=== PATIENT | female | born 1945 | race Caucasian/White ===

== ENCOUNTER 2018-04-12 15:21 | Outpatient (REF) | payer OTHER, SELFPAY ==
[2018-04-12 20:21] LABS: COMMENT (LAB VIEW ONLY) 267.86 mg/dL; Microalb ug/mg Crea 15.3 ug/mg Cr
== END 2018-04-12 15:41 ==
LOC: NCHCN 15:21
PROVIDERS: PCP Family Medicine; Visit Provider Family Medicine
DX: E11.9 Type 2 diabetes mellitus without complications (principal)
CPT/HCPCS: 82043; 82570

== ENCOUNTER 2018-09-29 08:24 | Outpatient (REF) | payer OTHER, SELFPAY ==
[2018-09-29 13:30] LABS: Hemoglobin A1C 6.8 % (4.5-6.2)
[2018-09-29 13:52] LABS: Anion Gap 5.5 mmol/L (3-11); BUN 12 mg/dL (7-18); CO2 31.5 mmol/L (21.0-32.0); CREATININE 0.71 mg/dL (0.55-1.02); Calculated LDL 92; Chloride 102 mmol/L (98-107); Cholesterol 176 mg/dL (50-200); Glucose 135 mg/dL (70-100); HDL Cholesterol 58 mg/dL (40-60); Potassium 4.7 mmol/L (3.5-5.1); Sodium 139 mmol/L (136-145); Triglyceride 130 mg/dL (30-150)
[2018-09-29 13:57] LABS: Calcium 9.3 mg/dL (8.5-10.1)
== END 2018-09-29 08:44 ==
LOC: NCHCN 08:24
PROVIDERS: PCP Family Medicine; Visit Provider Family Medicine
DX: E11.9 Type 2 diabetes mellitus without complications (principal); E78.5 Hyperlipidemia, unspecified
CPT/HCPCS: 80048; 80061; 83721; 83036

== ENCOUNTER 2018-10-15 01:44 | Outpatient (CLI) | payer OTHER, SELFPAY ==
--- NOTE | 2018-10-15 13:17 | DI.MAMMO_ITS ---
SYMPTOMS/DIAGNOSIS: SCREENING, [facility], Z00.00, FAMILY H/O CANCER BILATERAL SCREENING MAMMOGRAM: Mammograms were interpreted according to the usual protocol including computer analysis with CAD system, tomosynthesis and C view imaging. Comparison is made with exams from 2012 through 2017. The breasts are composed of scattered fibroglandular densities, breast density category B. No suspicious masses or suspicious microcalcifications are seen. There has been no significant change. IMPRESSION: Category 1, negative mammogram. Yearly screening mammography is recommended. [facility] ASSESSMENT OF FINDINGS: Negative. Category 1. Patient will receive a letter notifying them of these results. BI-RADS category B. There are scattered areas of fibroglandular density.
== END 2018-10-15 02:04 ==
PROVIDERS: PCP Family Medicine; Visit Provider Family Medicine
DX: Z12.31 Encounter for screening mammogram for malignant neoplasm of breast (principal); Z80.3 Family history of malignant neoplasm of breast
CPT/HCPCS: 77063; 77067

== ENCOUNTER 2018-12-15 00:33 | Outpatient (CLI) | payer OTHER, SELFPAY ==
--- NOTE | 2018-12-15 07:30 | MERGE_ITS ---
*[facility]* *[facility]* [address] [place] [address] Date of study: 12/15/2018 Transthoracic Echocardiography M-mode, complete 2D, complete spectral Doppler, and color Doppler *STUDY CONCLUSIONS* Summary: 1. Left ventricle: The cavity size was normal. Systolic function was normal. The estimated ejection fraction was 60-65%. Diastolic parameters were normal for age. There was no evidence of elevated ventricular filling pressure by Doppler parameters. 2. Aortic valve: There was very mild stenosis. Peak velocity (S): 1.9m/sec. Mean gradient (S): 8.7mm Hg. VTI ratio of LVOT to aortic valve: 0.46. Valve area (VTI): 1.3cm^2. 3. Mitral valve: There was mild regurgitation. 4. Right ventricle: The cavity size was normal. Wall thickness was normal. Systolic function was normal. 5. Atrial septum: No defect or patent foramen ovale was identified. 6. Pulmonary arteries: Pulmonary systolic pressure was in the range of 20mm Hg to 30mm Hg. 7. Inferior vena cava: The vessel was patent and normal in size. The respirophasic diameter changes were in the normal range (greater than or equal to 50%), consistent with normal central venous pressure. *PATIENT PRESENTATION* Height: 154.9cm (61in ) S/D Pressure: 125 / 68 Weight: 83.9kg (184.6lb ) BSA: 1.94m^2 Test start time: 07:38 AM. Test stop time: 08:30 AM. CONSULTING Deepika Miller Dana REFERRING Kraus, Dana PERFORMING Unknown PERFORMING [facility] CURRICULUM COUNSELOR Delaney Greene, RT (R)(CT), RDCS *PROCEDURE DATA* Procedure information: This study was interpreted by [facility]. Pertinent images and digital data are archived for permanent storage and are available for subsequent review. No prior study was available for comparison. Study status: Routine. Transthoracic echocardiography. M-mode, complete 2D, complete spectral Doppler, and color Doppler. A Transthoracic Echocardiogram was performed. Scanning was performed from the parasternal, apical, subcostal, and suprasternal notch acoustic windows. Images were obtained using an [id number] cardiac ultrasound machine. Image quality was good. Study completion: The patient tolerated the procedure well. History: PMH: Systolic heart murmur r01.1 she was told murmur as far back as age 49. Louder to primary care. No symptoms. *CARDIAC ANATOMY* Left ventricle: The cavity size was normal. Systolic function was normal. The estimated ejection fraction was 60-65%. Diastolic parameters were normal for age. There was no evidence of elevated ventricular filling pressure by Doppler parameters. Aortic valve: Trileaflet; mildly thickened, mildly calcified leaflets. Doppler: There was very mild stenosis. There was no regurgitation. VTI ratio of LVOT to aortic valve: 0.46. Valve area (VTI): 1.3cm^2. Indexed valve area (VTI): 0.7cm^2/m^2. Peak velocity ratio of LVOT to aortic valve: 0.46. Valve area (Vmax): 1.3cm^2. Indexed valve area (Vmax): 0.7cm^2/m^2. Mean velocity ratio of LVOT to aortic valve: 0.48. Valve area (Vmean): 1.3cm^2. Indexed valve area (Vmean): 0.7cm^2/m^2. Mean gradient (S): 8.7mm Hg. Peak gradient (S): 14.6mm Hg. Aorta: Aortic root: The aortic root was normal in size. Ascending aorta: The ascending aorta was mildly dilated. Mitral valve: Doppler: There was no evidence for stenosis. There was mild regurgitation. Valve area by pressure half-time: 4cm^2. Indexed valve area by pressure half-time: 2cm^2/m^2. Peak gradient (D): 4.1mm Hg. Left atrium: The atrium was normal in size. Atrial septum: No defect or patent foramen ovale was identified. Right ventricle: The cavity size was normal. Wall thickness was normal. Systolic function was normal. Pulmonic valve: Doppler: There was no evidence for stenosis. There was trivial regurgitation. Peak gradient (S): 2.9mm Hg. Tricuspid valve: Doppler: There was mild regurgitation. Pulmonary artery: Poorly visualized. Pulmonary systolic pressure was in the range of 20mm Hg to 30mm Hg. Right atrium: The atrium was normal in size. Pericardium: There was no pericardial effusion. Systemic veins: Inferior vena cava: Well visualized. The vessel was patent and normal in size. The respirophasic diameter changes were in the normal range (greater than or equal to 50%), consistent with normal central venous pressure. Baseline ECG: Bradycardia. Measurements Left ventricle Value Reference LV ID, ED, PLAX 4.7 cm 3.5 - 6.0 LV ID, ES, PLAX 2.8 cm 2.1 - 4.0 LV PW thickness, ED, PLAX 0.9 cm LV end-diastolic volume, 1-p A2C 79 ml LV ejection fraction, 1-p A2C 59 % LV end-diastolic volume, 1-p A4C 74 ml LV ejection fraction, 1-p A4C 61 % LV e', lateral 0.09 m/sec LV E/e', lateral 11 LV e', medial 0.082 m/sec LV E/e', medial 12 LV e', average 0.086 m/sec LV E/e', average 12 Ventricular septum Value Reference IVS thickness, ED, PLAX 0.9 cm LVOT Value Reference LVOT ID, A-P 1.9 cm LVOT area 2.8 cm^2 LVOT peak velocity, S 0.87 m/sec LVOT mean velocity, S 0.67 m/sec LVOT VTI, S 23.9 cm LVOT peak gradient, S 3 mm Hg LVOT mean gradient, S 2 mm Hg Stroke volume (SV), LVOT DP 67 ml Stroke index (SV/bsa), LVOT DP 34 ml/m^2 Aortic valve Value Reference Aortic valve peak velocity, S 1.9 m/sec Aortic valve mean velocity, S 1.4 m/sec Aortic valve VTI, S 52.0 cm Aortic mean gradient, S 8.7 mm Hg Aortic peak gradient, S 14.6 mm Hg VTI ratio, LVOT/AV 0.46 Aortic valve area, VTI 1.3 cm^2 Velocity ratio, peak, LVOT/AV 0.46 Aortic valve area, peak velocity 1.3 cm^2 Velocity ratio, mean, LVOT/AV 0.48 Aortic valve area, mean velocity 1.3 cm^2 Aortic valve area/bsa, mean velocity 0.7 cm^2/m^2 Aorta Value Reference Aortic root ID, ED 3.1 cm Ascending aorta ID, A-P, S 3.4 cm Left atrium Value Reference LA ID, A-P, ES 3.2 cm LA ID/bsa, A-P 1.6 cm/m^2 <=2.2 LA volume/bsa, ES, 1-p A4C 25 ml/m^2 LA volume, ES, 2-p 52 ml LA volume/bsa, ES, 2-p 27 ml/m^2 LA/aortic root ratio 1.04 Mitral valve Value Reference Mitral E-wave peak velocity 1.01 m/sec Mitral A-wave peak velocity 0.93 m/sec Mitral deceleration time 191 ms 150 - 230 Mitral pressure half-time 55 ms Mitral peak gradient, D 4.1 mm Hg Mitral E/A ratio, peak 1.09 Mitral valve area, PHT, DP 4 cm^2 Tricuspid valve Value Reference Tricuspid regurg peak velocity 2.5 m/sec Tricuspid peak RV-RA gradient 24.5 mm Hg Right atrium Value Reference RA area, ES, A4C 15.8 cm^2 8.3 - 19.5 Pulmonic valve Value Reference Pulmonic peak gradient, S 2.9 mm Hg Legend: (L) and (H) tigre values outside specified reference range. I have personally reviewed the images and have reviewed and edited the reported findings. Electronically signed by Christiano Leiva MD 12/15/2018 16:36
== END 2018-12-15 00:53 ==
PROVIDERS: PCP Family Medicine; Visit Provider Family Medicine
DX: R01.1 Cardiac murmur, unspecified (principal); I35.0 Nonrheumatic aortic (valve) stenosis; I34.0 Nonrheumatic mitral (valve) insufficiency
CPT/HCPCS: 93306

== ENCOUNTER 2019-05-11 11:48 | Outpatient (REF) | payer OTHER, SELFPAY ==
[2019-05-11 14:43] LABS: COMMENT (LAB VIEW ONLY) 124.94 mg/dL; Microalb ug/mg Crea 17.4 ug/mg Cr
== END 2019-05-11 12:08 ==
LOC: NCHCN 11:48
PROVIDERS: PCP Family Medicine; Visit Provider Family Medicine
DX: E11.9 Type 2 diabetes mellitus without complications (principal)
CPT/HCPCS: 82043; 82570

== ENCOUNTER 2020-04-02 19:24 | Outpatient (REF) | payer OTHER, SELFPAY ==
[2020-04-02 13:53] LABS: HCT 41.8 % (36.0-46.0); HGB 13.4 g/dL (11.2-15.7); MCH 29.6 pg (27.0-33.0); MCHC 32.1 % (32.0-36.0); MCV 92.5 fL (80-95); MPV 9.7 fL (8.0-11.0); Platelet Count 313 10^3/uL (130-400); RBC 4.52 10^6/uL (3.93-5.22); RDW 12.4 % (11.7-14.6); RDW-SD 42.2 fL; WBC 5.08 10^3/uL (4.4-10.8)
[2020-04-02 14:03] LABS: BUN 13 mg/dL (7-18); CREATININE 0.88 mg/dL (0.55-1.02); Calcium 9.2 mg/dL (8.5-10.1); Chloride 103 mmol/L (98-107); Glucose 127 mg/dL (74-106); Potassium 4.4 mmol/L (3.5-5.1); Sodium 141 mmol/L (136-145)
[2020-04-02 14:20] LABS: Hemoglobin A1C 6.8 % (<5.7)
[2020-04-02 14:30] LABS: Vitamin D 25 Total 29.5 ng/ml (30-100)
== END 2020-04-02 19:44 ==
LOC: NCHCN 19:24
PROVIDERS: PCP Family Medicine; Visit Provider Family Medicine
DX: E78.5 Hyperlipidemia, unspecified (principal); E11.9 Type 2 diabetes mellitus without complications; E55.9 Vitamin D deficiency, unspecified
CPT/HCPCS: 80048; 82306; 85027; 83036

== ENCOUNTER 2020-10-08 18:47 | Outpatient (REF) | payer OTHER, SELFPAY ==
[2020-10-08 20:25] LABS: COMMENT (LAB VIEW ONLY) 168.25 mg/dL; Microalb ug/mg Crea 10.3 ug/mg Cr
== END 2020-10-08 18:48 | disposition home or self-care (01) ==
LOC: NCHCN 18:47
PROVIDERS: PCP Family Medicine; Visit Provider Family Medicine
DX: E11.9 Type 2 diabetes mellitus without complications (principal)
CPT/HCPCS: 82043; 82570

== ENCOUNTER 2020-12-31 14:11 | Outpatient (REF) | payer OTHER, SELFPAY ==
[2020-12-31 14:52] LABS: Anion Gap 6.4 mmol/L (3-11); BUN 12 mg/dL (7-18); CO2 31.6 mmol/L (21.0-32.0); CREATININE 0.9 mg/dL (0.55-1.02); Calcium 9.5 mg/dL (8.5-10.1); Chloride 105 mmol/L (98-107); Glucose 136 mg/dL (74-106); Potassium 4.9 mmol/L (3.5-5.1); Sodium 143 mmol/L (136-145)
== END 2020-12-31 14:12 | disposition home or self-care (01) ==
LOC: NCHCN 14:11
PROVIDERS: PCP Family Medicine; Visit Provider Family Medicine
DX: E11.9 Type 2 diabetes mellitus without complications (principal); E55.9 Vitamin D deficiency, unspecified
CPT/HCPCS: 80048; 82306; 83036

== ENCOUNTER 2021-03-21 01:54 | Outpatient (CLI) | payer MEDICARE, SELFPAY ==
--- NOTE | 2021-03-21 | DI.DEXA_ITS ---
Exam(s) XR DEXA BONE DENSITY W/WO OSCAR EXAM: XR DEXA BONE DENSITY W/WO OSCAR CLINICAL HISTORY: OSTEOPOROSIS W/ L1 COMP FX ON FOSAMAX M81.0 TECHNIQUE: Routine DEXA evaluation of the lumbar spine, hip, or forearm. COMPARISON: DX DEXA BONE DENSITY WITH OSCAR from July 2012 DX DEXA BONE DENSITY WITH OSCAR from 11/11/2016 FINDINGS: Performed on a [employer] unit. Lateral image: There are compression fractures T12-L2. The T12 compression fracture was evident. L2 compression fracture was not evident on the prior DEXA scan. Lumbar Spine total T-score: -1.2 . Prior 2013 reading was -1.9 Hip total T-score:-1.3. Prior reading in 2012 was -0.9 and in 2016 was -1.1 Independent reading at the level of the femoral neck yields at T-score of -3.2. Forearm total T-score: -2.5 IMPRESSION: Bone mineral density measures in the osteoporosis range due to the femoral neck reading. Therefore f racture risk is high. Please note that there are compression fractures of both T12 and L2 now eviden t. Note: Any spine fracture indicates 5x risk for subsequent spine fracture and 2x risk for subsequent h ip fracture. World Health Organization criteria for BMD interpretation classify patients: Normal...... T- Score at or above -1.0 Osteopenic... T- Score between -1.0 and -2.5 Osteoporosis... T-Score at or below -2.5
--- NOTE | 2021-03-21 15:20 | DI.MAMMO_ITS ---
Exam(s) MAMMO SCREENING EXAM: MAMMO SCREENING CLINICAL HISTORY: SCREENING MAMMO FOR BREAST CANCER Z12.31. TECHNIQUE: Bilateral full field digital CC and MLO mammographic images were obtained with 3D tomosyn thesis and utilizing computer aided detection (CAD). COMPARISON: Prior mammograms dating back to 2011, the most recent being October 2018. FINDINGS: There has been no significant change appearance and distribution fibroglandular tissue. There are no new spiculated masses nor malignant appearing microcalcification groups. Benign-appearing nodular densities in the right breast are unchanged prior studies. Asymmetric density anteriorly in the left breast is unchanged from prior studies. No new masses. No new malignant-appearing microcalcification groups no new architectural distortion or skin thickening-traction. IMPRESSION: No radiographic evidence of malignancy. Stable benign-appearing findings. BI-RADS Category 2 - Benign Findings Breast Density - Category B - Scattered areas of fibroglandular density Breast density Category C or D implies that the patient has dense breast tissue. Dense breast tissue can make it harder to find cancer on a mammogram. Dense breast tissue is also associated with an incr eased risk of breast cancer. This information about the result of the mammogram report was provided to the patient to raise their awareness. Use this report when you speak with the patient about their risks for breast cancer, which includes their family history. At that time, you may recommend additional screening tests (Ultrasoun d or MRI) as these tests may add significant information. A negative radiographic report should not delay biopsy if a dominant or clinically suspicious mass is present. Up to ten percent of cancers are not identified on mammography. A negative report may reinforce clinical impression. Adenosis and dense breasts may obscure an underlying neoplasm. False positive reports average 6 to 10%. Patient will receive a letter notifying them of these results.
== END 2021-03-21 02:14 ==
PROVIDERS: PCP Family Medicine; Visit Provider Family Medicine
DX: M81.0 Age-related osteoporosis without current pathological fracture (principal); Z12.31 Encounter for screening mammogram for malignant neoplasm of breast; Z13.820 Encounter for screening for osteoporosis; M85.89 Other specified disorders of bone density and structure, multiple sites
CPT/HCPCS: 77063; 77067; 77080

== ENCOUNTER 2021-09-16 08:37 | Outpatient (REF) | payer MEDICARE, SELFPAY ==
[2021-09-16 17:06] LABS: COMMENT (LAB VIEW ONLY) 92.98 mg/dL; Microalb ug/mg Crea 10.8 ug/mg Cr
[2021-09-16 17:22] LABS: Hemoglobin A1C 6.9 % (<5.7)
[2021-09-16 17:29] LABS: Anion Gap 7.8 mmol/L (3-11); BUN 14 mg/dL (7-18); CO2 30.2 mmol/L (21.0-32.0); CREATININE 0.8 mg/dL (0.55-1.02); Calcium 8.7 mg/dL (8.5-10.1); Chloride 104 mmol/L (98-107); Glucose 136 mg/dL (74-106); Potassium 4.3 mmol/L (3.5-5.1); Sodium 142 mmol/L (136-145)
[2021-09-16 17:40] LABS: PHOSPHORUS 3.4 mg/dL (2.6-4.7)
[2021-09-16 18:32] LABS: Vitamin D 25 Total 31.4 ng/mL (30-100)
[2021-09-18 10:46] LABS: Parathyroid Hormone,Intact 87 pg/mL (19-88)
[2021-09-18 11:12] LABS: IgA 307 mg/dL (85-499); Interpretation (See Note); Tissue Transglutaminase IgA <1.2 U/mL (<4.0)
== END 2021-09-16 08:38 | disposition home or self-care (01) ==
LOC: NCHCN 08:37
PROVIDERS: PCP Family Medicine; Visit Provider Family Medicine
DX: M81.0 Age-related osteoporosis without current pathological fracture (principal); E55.9 Vitamin D deficiency, unspecified; Z79.899 Other long term (current) drug therapy; E11.9 Type 2 diabetes mellitus without complications
CPT/HCPCS: 80048; 82306; 82784; 83516; 82043; 82570; 83036; 83970; 84100

== ENCOUNTER → 2022-01-04 10:53 | Outpatient (CLI) | payer MEDICARE, SELFPAY ==
--- NOTE | 2022-01-04 | DI.RAD_ITS ---
Exam(s) XR CHEST 2V PA LATERAL EXAM: XR CHEST 2V PA LATERAL CLINICAL HISTORY: COUGH TECHNIQUE: COMPARISON: CR XR DEXA BONE DENSITY W/WO OSCAR from 03/21/2021 FINDINGS: The heart is not enlarged. Lungs are clear. No pleural effusion seen. Old lower thoracic vertebral body compression fracture again noted. IMPRESSION: No evidence of acute process. RADIATION DOSE DELIVERED: Total DLP
--- NOTE | 2022-01-04 11:24 | DI.VRAD_ITS ---
PROCEDURE INFORMATION: Exam: XR Chest Exam date and time: 01/04/2022 11:04 AM Age: 76 years old Clinical indication: Cough TECHNIQUE: Imaging protocol: Radiologic exam of the chest. Views: 2 views. COMPARISON: No relevant prior studies available. FINDINGS: Lungs: Unremarkable. No consolidation. Pleural spaces: Unremarkable. No pleural effusion. No pneumothorax. Heart/Mediastinum: Unremarkable. No cardiomegaly. Bones/joints: Unremarkable. IMPRESSION: No acute findings. Dictated and Authenticated by: Mat Nash MD. Ordering:AIMEE Jaramillo MD
== END ==
PROVIDERS: PCP Family Medicine; Visit Provider Physician Assistant Medical
DX: R05.9 Cough, unspecified (principal)
CPT/HCPCS: 71046

== ENCOUNTER 2022-01-04 13:13 | Outpatient (REF) | payer MEDICARE, SELFPAY ==
[2022-01-06 11:57] LABS: COVID-19 RT-PCR UVMMC Result Negative (Negative)
== END 2022-01-04 13:14 | disposition home or self-care (01) ==
LOC: LBN 13:13
PROVIDERS: PCP Family Medicine; Visit Provider Physician Assistant Medical
DX: Z20.822 Contact with and (suspected) exposure to COVID-19 (principal)
CPT/HCPCS: U0003

== ENCOUNTER 2022-01-27 16:26 | Outpatient (REF) | payer MEDICARE, SELFPAY ==
[2022-01-27 16:32] LABS: TSH (W/Ref FT4) 1.16 uIU/mL (0.36-3.74); Vitamin B12 1040 pg/mL (193-986)
== END 2022-01-27 16:27 | disposition home or self-care (01) ==
LOC: NCHCN 16:26
PROVIDERS: PCP Family Medicine; Visit Provider Family Medicine
DX: R53.83 Other fatigue (principal); E53.8 Deficiency of other specified B group vitamins
CPT/HCPCS: 85027; 82607; 84443

== ENCOUNTER → 2022-03-24 02:03 | Outpatient (CLI) | payer MEDICARE, SELFPAY ==
--- NOTE | 2022-03-24 12:30 | DI.MAMMO_ITS ---
Exam(s) MAMMO SCREENING EXAM: MAMMO SCREENING CLINICAL HISTORY: SCREENING MAMMO Z12.31. TECHNIQUE: Bilateral full field digital CC and MLO mammographic images were obtained with 3D tomosyn thesis and utilizing computer aided detection (CAD). COMPARISON: Prior mammograms were reviewed. FINDINGS: There has been no significant change in the appearance and distribution of the fibroglandular tissue. Asymmetric benign-appearing nodular densities again noted in both breast. There are no new spiculated masses nor malignant appearing microcalcification groups. There is no significant architectural distortion nor skin thickening-retraction. IMPRESSION: No radiographic evidence of malignancy. Stable benign-appearing findings. BI-RADS Category 2 - Benign Findings Breast Density - Category B - Scattered areas of fibroglandular density Breast density Category C or D implies that the patient has dense breast tissue. Dense breast tissue can make it harder to find cancer on a mammogram. Dense breast tissue is also associated with an incr eased risk of breast cancer. This information about the result of the mammogram report was provided to the patient to raise their awareness. Use this report when you speak with the patient about their risks for breast cancer, which includes their family history. At that time, you may recommend additional screening tests (Ultrasoun d or MRI) as these tests may add significant information. A negative radiographic report should not delay biopsy if a dominant or clinically suspicious mass is present. Up to ten percent of cancers are not identified on mammography. A negative report may reinforce clinical impression. Adenosis and dense breasts may obscure an underlying neoplasm. False positive reports average 6 to 10%. Patient will receive a letter notifying them of these results.
== END ==
PROVIDERS: PCP Family Medicine; Visit Provider Family Medicine
DX: Z12.31 Encounter for screening mammogram for malignant neoplasm of breast (principal); N60.81 Other benign mammary dysplasias of right breast; N60.82 Other benign mammary dysplasias of left breast
CPT/HCPCS: 77063; 77067

== ENCOUNTER 2022-11-19 09:51 | Outpatient (REF) | payer MEDICARE, SELFPAY ==
[2022-11-19 16:27] LABS: HCT 38.9 % (36.0-46.0); HGB 12.6 g/dL (11.2-15.7); MCHC 32.4 % (32.0-36.0); MCV 90 fL (80-95); MPV 9.5 fL (8.0-11.0); Platelet Count 312 10^3/uL (130-400); RBC 4.34 10^6/uL (3.93-5.22); RDW 12.6 % (11.7-14.6); RDW-SD 42.1 fL; WBC 5.21 10^3/uL (4.4-10.8)
[2022-11-19 16:46] LABS: ALT 14 U/L (14-59); AST 18 U/L (15-37); Albumin 3.3 g/dL (3.4-5.0); Alkaline Phosphatase 90 U/L (46-116); Anion Gap 6.8 mmol/L (3-11); BUN 13 mg/dL (7-18); Bilirubin, Total 0.9 mg/dL (0.2-1.0); CO2 29.2 mmol/L (21.0-32.0); CREATININE 0.9 mg/dL (0.55-1.02); Calcium 9.2 mg/dL (8.5-10.1); Chloride 104 mmol/L (98-107); Estimated GFR 65.44 (mL/min/1.73m2); Glucose 130 mg/dL (74-106); Potassium 4.1 mmol/L (3.5-5.1); Sodium 140 mmol/L (136-145); Total Protein 7.1 g/dL (6.4-8.2)
[2022-11-19 16:47] LABS: Hemoglobin A1C 6.9 % (<5.7)
== END 2022-11-19 09:52 | disposition home or self-care (01) ==
LOC: NCHCN 09:51
PROVIDERS: PCP Family Medicine; Visit Provider Family Medicine
DX: E11.9 Type 2 diabetes mellitus without complications (principal); R53.83 Other fatigue; F32.89 Other specified depressive episodes
CPT/HCPCS: 80053; 85027; 83036

== ENCOUNTER 2023-04-20 10:08 | Emergency (ER) | payer MEDICARE, SELFPAY ==
[2023-04-20 10:19] VITALS: BP 164/64; PULSE 84; RESP 20; TEMP 36.3; O2SAT 100
--- NOTE | 2023-04-20 10:30 | DI.CT_ITS ---
Exam(s) CT LUMBAR SPINE SI JOINTS WO EXAM: CT LUMBAR SPINE SI JOINTS WO CLINICAL HISTORY: fall, l4 pain and SI bilateral. TECHNIQUE: Imaging Protocol: Axial computed tomography images with coronal and sagittal reformatted images were created and reviewed. COMPARISON: CR XR DEXA BONE DENSITY W/WO OSCAR from 03/21/2021 FINDINGS: Bones: There is an acute fracture of the superior endplate of L3 with loss of less than 20 percent of the height of the vertebral body. There are old compression deformities of T12 and L2. There are de generative changes seen throughout the lumbar spine. Soft tissues: Incidental note is made of a left adrenal nodule. It measures 1.7 cm. Atherosclerosis is present. There is diverticulosis seen in the colon. There is a hypodensity in the right kidney measuring 8 mm. This likely reflects a cyst but is too small for further characterization on this no ncontrast examination. Follow-up as clinically appropriate. IMPRESSION: 1. Acute fracture of the superior endplate of L3 with loss of approximately 15 percent of the height of the vertebral body. 2. Findings were discussed with Caleb Hendrickson at 11:43 a.m. on 04/20/2023. RADIATION DOSE DELIVERED: 723.91mGy.cm Total DLP 723.91mGy.cm Total DLP DATA REPOSITORY: All CT scans at this facility are submitted to the National Radiology Data Registry (NRDR) Dose Index Registry (DIR) with the [employer] (ACR). RADIATION OPTIMIZATION: All CT scans at this facility use at least one of these dose optimization te chniques: automated exposure control; mA and/or kV adjustment per patient size (includes targeted exa ms where dose is matched to clinical indication); or iterative reconstruction.
--- NOTE | 2023-04-20 12:24 | W.ED.GENAD ---
HPI General Stated Complaint: Nk/Back Pain Mode of arrival: ambulatory. AMITA: 3 Date/Time Provider Initiated Documentation: 04/20/23 10:26. Limitations to Documentation: no limitations. Information obtained by: patient and RN notes reviewed. History of Present Illness Back pain moderate aching back reports radiation to back day(s) (6) constant No relieving factors improve symptom(s), Movement worsens symptoms no other symptoms. other (Acetaminophen) Related Data Home Medications Medication Instructions Recorded Confirmed Calcium-Carb 600 mg DAILY 07/19/12 10/20/14 Vitamin B 12 100 mg DAILY 07/19/12 10/20/14 Vitamin D 3 DAILY 07/19/12 10/20/14 atorvastatin 20 mg tablet (Lipitor) 20 mg PO DAILY 07/19/12 04/20/23 loratadine 10 mg disintegrating 10 mg PO PRN 07/19/12 04/20/23 tablet metformin 500 mg tablet,extended 500 mg PO BID 07/19/12 04/20/23 release 24hr (osmotic) fluoxetine 10 mg capsule 10 mg PO DAILY 10/20/14 04/20/23 omeprazole magnesium 20 mg 20 mg PO PRN PRN 10/20/14 04/20/23 tablet,delayed release (Prilosec OTC) Allergies Allergy/AdvReac Type Severity Reaction Status Date / Time No Known Allergies Allergy Unverified 04/20/23 10:21 Review of Systems Constitutional Constitutional: Denies chills and Denies fever(s) Cardiovascular Cardiovascular: Denies chest pain and Denies dyspnea on exertion Respiratory Respiratory: Denies cough and Denies dyspnea on exertion Gastrointestinal Gastrointestinal: Denies abdominal pain, Denies change in bowel habits, Denies diarrhea, Denies nausea and Denies vomiting Genitourinary Genitourinary: Denies urinary incontinence Musculoskeletal Musculoskeletal: Reports as per HPI and Reports back pain Neurologic Neurologic: Denies sensory deficit PFSH All Active Problems (Updated 04/20/23 @ 12:59 by Caleb Hendrickson NP) High blood pressure (Chronic) Compression fracture of lumbar vertebra (Acute) Colon cancer screening (Acute) Medical History (Updated 04/20/23 @ 12:59 by Caleb Hendrickson NP) Hiatal hernia Rosacea Hyperlipidemia Depression Infectious mononucleosis age 18 -required hospitalization Diabetes mellitus, type 2 Family History Father Heart disease Sister Personal history of malignant neoplasm Breast CA - diagnosed age 63 Brother Diabetes Brother Diabetes Social History Smoking/Tobacco Use Status: Never Smoking risk assessment performed?: Yes Alcohol Intake: never Drug use: Never Housing: apartment Exam Const General: cooperative and no acute distress Orientation: alert, awake and oriented x3 Neck Neck: normal visual inspection, full ROM and no meningeal signs Resp Effort & Inspection: normal respiratory effort Back/Spine/Pelvis Thoracic/Lumbar Spine: pain with thoraco-lumbar ROM, thoraco-lumbar ROM limited and lumbar spinal tenderness Pelvis: no pain with anterior-posterior compression, no pain with lateral compression and no buttock tenderness Sacroiliac joints: bilaterally tender to palpation Neuro General: patient alert, patient awake and patient oriented x3 Course Vital Signs Vital signs: Vital Signs Temperature 36.3 C L 04/20/23 10:19 Pulse 84 04/20/23 10:19 Respiratory Rate 20 04/20/23 10:19 Blood Pressure 164/64 H 04/20/23 10:19 Pulse Oximetry 100 04/20/23 10:19 Temperature 36.3 C L 04/20/23 10:19 Pulse 84 04/20/23 10:19 Respiratory Rate 20 04/20/23 10:19 Respiratory Effort Normal, Non-Labored 04/20/23 10:21 Blood Pressure 164/64 H 04/20/23 10:19 Blood Pressure Position Sitting 04/20/23 10:19 Pulse Oximetry 100 04/20/23 10:19 Oxygen Delivery Method Room Air 04/20/23 10:19 Oxygen Flow Rate 0 04/20/23 10:19 Pain Level 5 04/20/23 10:19 Medical Decision Making Patient presenting the emergency department for chief complaint of fall landing on buttocks. Patient reports that she has not been improving and due to lack of improvement is presenting the emergency department. Patient denies any severe weakness of lower extremities, numbness tingling, change in bowel or bladder function. Patient does have pertinent past medical history of old compression fracture secondary to fall, depression, hiatal hernia, hyperlipidemia, type 2 diabetes. Physical exam shows mid lumbar tenderness, no tenderness with compression, SI joint tenderness , exam is otherwise unremarkable with normal sensation distal to injury, appropriate distal pulses. Will perform CT imaging as I am concerned for possible compression fracture given age and history of similar. Patient denies any need for pain medication pending results. CT imaging does show L3 acute compression fracture with 15% loss. Given patient tolerating symptoms well, no associated neuropathic abnormality, and less than 50% height loss I do feel that patient is able to do appropriately manage symptoms at home and follow-up with primary care. After discussion of diagnosis and plan of care patient has no further needs, questions, or concerns and states clear understanding to return to the emergency department for any worsening symptoms. This documentation was generated using [employer] dictation system, please disregard any oddities of phrase or misspellings. Imaging Data Radiologic Study: Imaging: CT Scan Radiologist's impression: Exam(s) CT LUMBAR SPINE SI JOINTS WO EXAM: CT LUMBAR SPINE SI JOINTS WO CLINICAL HISTORY: fall, l4 pain and SI bilateral. TECHNIQUE: Imaging Protocol: Axial computed tomography images with coronal and sagittal reformatted images were created and reviewed. COMPARISON: CR XR DEXA BONE DENSITY W/WO OSCAR from 03/21/2021 FINDINGS: Bones: There is an acute fracture of the superior endplate of L3 with loss of less than 20 percent of the height of the vertebral body. There are old compression deformities of T12 and L2. There are degenerative changes seen throughout the lumbar spine. Soft tissues: Incidental note is made of a left adrenal nodule. It measures 1.7 cm. Atherosclerosis is present. There is diverticulosis seen in the colon. There is a hypodensity in the right kidney measuring 8 mm. This likely reflects a cyst but is too small for further characterization on this noncontrast examination. Follow-up as clinically appropriate. IMPRESSION: 1. Acute fracture of the superior endplate of L3 with loss of approximately 15 percent of the height of the vertebral body. 2. Findings were discussed with Caleb Hendrickson at 11:43 a.m. on 04/20/2023. Quality:SDOH Health Related Social Needs: No Data to Display Discharge Plan Disposition Patient Disposition: Home Discharge Details Clinical Impression: Compression fracture of lumbar vertebra, High blood pressure Primary Care Provider: Deepika Miller ED Provider: Caleb Hendrickson Home Meds and New Rx's Prescriptions: Continued loratadine 10 MG tablet,disintegrating 10 mg PO PRN atorvastatin [Lipitor] 20 MG tablet 20 mg PO DAILY metformin 500 MG tablet extended release 24hr 500 mg PO BID VITAMIN B 12 100 mg DAILY VITAMIN D 3 DAILY calcium-carb 600 mg DAILY omeprazole magnesium [Prilosec OTC] 20 MG tablet,delayed release (DR/EC) 20 mg PO PRN PRN fluoxetine 10 MG capsule 10 mg PO DAILY Discharge Instructions Instructions: Vertebral Compression Fracture (ED) Additional Instructions: You may continue to take [id number] acetaminophen/Tylenol as needed for pain. Please do not take more than 2 to 3000 mg in a 24-hour period. If you have any new or significant worsening of symptoms, change in bowel or bladder function severe weakness or repeat injury please return to the emergency department for reassessment. It is very important that you do not lift anything greater than 5 pounds until cleared by your primary care provider. Please avoid bending lifting or twisting motions. Please follow-up with your primary care provider for reassessment Referrals: Deepika Miller MD [Primary Care Provider] - 1 week
[2023-04-20 12:40] VITALS: BP 179/76; PULSE 71; RESP 16; O2SAT 94
--- NOTE | 2023-04-20 14:35 | NUR.NOTE ---
Referral faxed to Primary Care for follow up due to Compression Fracture L3 within 1 week.
== END 2023-04-20 14:49 | disposition home or self-care (01) ==
PROVIDERS: Emergency Provider Nurse Practitioner Family; PCP Family Medicine
DX: S32.030A Wedge compression fracture of third lumbar vertebra, initial encounter for closed fracture (principal); E11.9 Type 2 diabetes mellitus without complications; E78.5 Hyperlipidemia, unspecified; Z79.84 Long term (current) use of oral hypoglycemic drugs; W07.XXXA Fall from chair, initial encounter
CPT/HCPCS: 99284; 72131

== ENCOUNTER 2023-05-06 20:44 | Outpatient (REF) | payer MEDICARE, SELFPAY ==
[2023-05-06 19:23] LABS: Calculated LDL 90 mg/dL (<100); Cholesterol 181 mg/dL (<200); HDL Cholesterol 63 mg/dL (40-60); Triglyceride 141 mg/dL (<150)
[2023-05-06 19:31] LABS: COMMENT (LAB VIEW ONLY) 255.87 mg/dL; Microalb ug/mg Crea 9.6 ug/mg Cr
== END 2023-05-06 20:45 | disposition home or self-care (01) ==
LOC: NCHCN 20:44
PROVIDERS: PCP Family Medicine; Visit Provider Family Medicine
DX: E11.9 Type 2 diabetes mellitus without complications (principal)
CPT/HCPCS: 80061; 82043; 82570; 83036

== ENCOUNTER → 2023-08-10 02:27 | Outpatient (CLI) | payer MEDICARE, SELFPAY ==
--- NOTE | 2023-08-10 | DI.DEXA_ITS ---
Exam(s) XR DEXA BONE DENSITY W/WO OSCAR EXAM: XR DEXA BONE DENSITY W/WO OSCAR CLINICAL HISTORY: SENILE OSTEOPOROSIS, M81.0 W/O CURRENT PATHOLOGICAL FRACTURE TECHNIQUE: COMPARISON: CR XR DEXA BONE DENSITY W/WO OSCAR from 03/21/2021 FINDINGS: Lateral Spine Image: There old compression fracture deformities of T12 and L2. There is a new superi or compression fracture deformity of L3. Left hip: Total T-Score: -1.1. This compares to -1.3 on the prior examination. Total Z-Score: 0.9 T- and Z-scores: Findings are consistent with osteopenia. There is osteoporosis in the femoral neck with a T-score of -2.9. Lumbar Spine: Total T-Score: -0.7. This compares to -1.2 on the prior examination. Total Z-Score: 1.9 T- and Z-scores: Within normal limits. Note is made of osteoporosis in the left forearm with a total T-score of -2.7. IMPRESSION: Osteoporosis in the left femoral neck and the left forearm.
== END ==
PROVIDERS: PCP Family Medicine; Visit Provider Family Medicine
DX: M81.0 Age-related osteoporosis without current pathological fracture (principal); Z13.820 Encounter for screening for osteoporosis
CPT/HCPCS: 77080

== ENCOUNTER 2023-09-02 11:47 | Outpatient (REF) | payer MEDICARE, SELFPAY ==
[2023-09-02 15:54] LABS: HGB 12.9 g/dL (11.2-15.7); MCH 28.8 pg (27.0-33.0); MCHC 32.3 % (32.0-36.0); MCV 89 fL (80-95); MPV 9.1 fL (8.0-11.0); Platelet Count 347 10^3/uL (130-400); RBC 4.48 10^6/uL (3.93-5.22); RDW 12.5 % (11.7-14.6); RDW-SD 41.1 fL; WBC 5.79 10^3/uL (4.4-10.8)
[2023-09-02 16:22] LABS: ALT 20 U/L (14-59); AST 12 U/L (15-37); Albumin 3.7 g/dL (3.4-5.0); Alkaline Phosphatase 109 U/L (46-116); Anion Gap 7.4 mmol/L (3-11); BUN 15 mg/dL (7-18); Bilirubin, Total 1.1 mg/dL (0.2-1.0); CO2 29.6 mmol/L (21.0-32.0); CREATININE 0.8 mg/dL (0.55-1.02); Calcium 9.3 mg/dL (8.5-10.1); Chloride 99 mmol/L (98-107); Glucose 116 mg/dL (74-106); Potassium 4.6 mmol/L (3.5-5.1); Sodium 136 mmol/L (136-145); TSH (W/Ref FT4) 0.81 uIU/mL (0.36-3.74); Total Protein 7.2 g/dL (6.4-8.2)
[2023-09-02 16:41] LABS: Hemoglobin A1C 7.1 % (<5.7)
== END 2023-09-02 11:48 | disposition home or self-care (01) ==
LOC: NCHCN 11:47
PROVIDERS: PCP Family Medicine; Visit Provider Family Medicine
DX: E11.9 Type 2 diabetes mellitus without complications (principal); R53.83 Other fatigue
CPT/HCPCS: 80053; 85027; 83036; 84443

== ENCOUNTER → 2023-09-24 00:25 | Outpatient (CLI) | payer MEDICARE, SELFPAY ==
--- NOTE | 2023-09-24 | DI.US_ITS ---
APPROVED REPORT EXAM: Comprehensive 2D, Doppler, and color-flow Echocardiogram Patient Location: Out-Patient Internet Webmaster: Wilda Flynn RDCS (AE) Indications: Aortic valve stenosis Other Information Study Quality: Good Conclusion Normal left ventricular wall thickness and chamber size. Ejection fraction is 60% Wall motion is nor mal. Normal right ventricular size and function Both atria are normal in size Aortic valve is trileaflet and minimally sclerotic. There is no hemodynamically significant aortic s tenosis. Mean gradient is 7 mmHg. There is no aortic regurgitation Mild mitral annular calcification Estimated right ventricular systolic pressure is 34 mmHg Wall motion Left Ventricle The left ventricle is normal size. The left ventricular systolic function is normal. The left ventric ular ejection fraction is within the normal range. There is normal left ventricular wall thickness. T here is normal LV segmental wall motion. There is no ventricular septal defect visualized. LVEF is 60 %. Right Ventricle The right ventricle is normal size. The right ventricular systolic function is normal. Atria The left atrium size is normal. The right atrium size is normal. The interatrial septum is intact wit h no evidence for an atrial septal defect. Aortic Valve The Aortic valve is minimally sclerotic. Aortic valve is trileaflet. There is no aortic valvular sten osis. Mean gradient 7 mmHg No aortic regurgitation is present. Mitral Valve The mitral valve is normal in structure. Mild mitral annular calcification. No evidence of mitral mary ve stenosis. Trace mitral regurgitation. Tricuspid Valve The tricuspid valve is normal in structure. There is no tricuspid valve stenosis. Trace tricuspid reg urgitation. The RVSP is 34.2 mmHg. Pulmonic Valve The pulmonary valve is normal in structure. There is no pulmonic valvular stenosis. Trace pulmonic re gurgitation. Great Vessels The aortic root is normal in size. The ascending aorta is normal in size. Aortic arch is not well vis ualized. IVC is normal in size and collapses >50% with inspiration. Pericardium There is no pericardial effusion. 2D Dimensions IVSD d PLAX 0.89 cm F: 0.6-1.0 Ao Root d 2.75 cm F: 2.7 - 3.3 LVPW d PLAX 0.91 cm F: 0.6 - 1.0 Ao Asc Diam d 2.89 cm F: 2.3 - 3.1 LVID d PLAX 4.07 cm F: 3.8 - 5.2 LVDs 2.84 cm F: 2.2 - 3.5 LV EF Teichholz 58.2 % FS 30.35 % LV EDV (Teich) 73.1 mL LV ESV (Teich) 30.5 mL M-Mode TAPSE 2.63 cm (M/F) >1.7 Auto EF LV EDV A4C 85.6 mL LV EDV A2C 101.3 mL LV EDV BP 93.2 mL LV ESV A4C 36.5 mL LV ESV A2C 42.2 mL LV ESV BP 39.4 mL LVEF(%) A4C 57.4 % LVEF(%) A2C 58.3 % LVEF(%) BP 57.7 % LV SV A4C 49.1 ml LV SV A2C 59.0 ml LV SV BP 53.8 ml LV CO A4C 3.2 L/min LV CO A2C 3.8 L/min LV CO BP 3.5 L/min HR A4C 65.81 BPM HR A2C 63.95 BPM LV EDV Index (BP) LA Volume LA Length A4C 5.3 cm LA Length A2C 5.1 cm LA Area A4C s 17.55 cm2 LA Area A2C s 15.13 cm2 LA Vol A4C A-L 49.64 mL LA Vol A2C A-L 38.30 mL LA Vol Biplane A-L 44.4 mL LA Vol/BSA A4C A-L LA Vol/BSA A2C A-L LA Vol/BSA BP A-L 25.0 mL/m2 LA Vol A4C MOD 46.4 mL LA Vol A2C MOD 36.2 mL LA Vol BP MOD 41.7 mL RA Volume RA Area A4C 12.4 cm2 RA ESV A4C (A-L) 29.1mL RA Vol/BSA A4C A-L RA Length A4C 4.5 cm RA ESV A4C (MOD) 28.5mL LV Diastology MV E' medial 0.067 (>0.07 m/s) MV E Vmax 1.10 (0.4-1.3 m/s) MV E/E' MED 16.47 (<14) MV A Vmax 0.95 (0.4-1.3 m/s) MV E' lateral 0.087 (>0.1 m/s) E/A Ratio 1.2 MV E/E' LAT 12.60 (<14) MV E' Average 0.077 m/s MV E/E'(average) 14.28 Aortic Valve AoV Vmax 1.83 m/s LVOT Vmax 1.26 m/s AoV Peak Grad 13.4 mmHg LVOT Peak Grad 6.3 mmHg AoV Area (Vmax) 2.14 cm2 LVOT VTI 0.315 m AoV VTI 0.455 m LVOT Mean Grad 4.1 mmHg AoV Mean New. 1.23 m/s LVOT SV 97.95 mL AoV Mean Grad 6.9 mmHg LVOT Diam s 1.95 cm AoV Area (VTI) 2.15 cm2 Velocity Ratio 0.69 Mitral Valve MV DT 221 (160-240 msec) MV Vmax TIPS 1.11 m/s MV Mean Grad 1.9 (<2mmHg) MV VTI 0.460 m Pulmonary Valve PV Vmax 0.81 (0.5-1.5 m/s) RVOT Vmax 0.63 m/s PV Peak Grad 2.6 mmHg RVOT Peak Gr. 1.6 mmHg PV Mean New 0.61 m/s RVOT VTI 0.172 m PV Mean Grad 1.7 mmHg RVOT Mean Gr. 0.9 mmHg Tricuspid Valve RA Pressure 3.00 mmHg TR Vmax 2.79 m/s TV S' 0.14 m/s TR Peak Grad 31.2 mmHg RVSP (TR) 34.2 mmHg
== END ==
PROVIDERS: PCP Family Medicine; Visit Provider Family Medicine
DX: I35.0 Nonrheumatic aortic (valve) stenosis (principal)
CPT/HCPCS: 93306

== ENCOUNTER → 2023-11-13 01:06 | Outpatient (CLI) | payer MEDICARE, SELFPAY ==
--- OUTSIDE RECORDS SUMMARY | 2023-11-13 01:10 | XMS_ITS | Encounter Summary ---
Author Organization [facility] Address [address] [place] [address] Care Team Providers Care Account Consultant Name Role Phone Unavailable Primary Care Provider Unavailabl e Encounter Details Date Type Department Care Team (Late st Contact Info) Description 09/18/2009 13:31 EDT - 09/18/2009 13:32 EDT Hospital Encounter [facility] - Other [address] [place] [address] Sandra Galarza, SUPERVISOR [employer] [address] [place] [address] Discharge Disposition: Home or Self Care Social History Tobacco Use Types Packs/Day Years Used Date Smoking Tobacco: Never Assessed Sex and Gender Information Value Date Recorded Sex Assigned at Not on file Gender Identity Not on file Sexual Orientation Not on file documented as of this encounter Discharge Disposition Disposition Code Departure Means Destination Home or Self Care documented in this encounter Plan of Treatment Not on file documented as of this encounter Visit Diagnoses Not on filedocumented in this encounter
--- OUTSIDE RECORDS SUMMARY | 2023-11-13 01:10 | XMS_ITS | Encounter Summary ---
Author Organization [facility] Address [address] [place] [address] Care Team Providers Care Home Stereo Equipment Installer Name Role Phone Deepika Miller MD Primary Care Provider [phone] Encounter Details Date Type Department Care Team (Late st Contact Info) Description 01/04/2022 Lab Requisition [facility] Pathology & Laboratory Medicine - [facility] [address] [place] [address] Outr Resulting Lab, Provider Social History Tobacco Use Types Packs/Day Years Used Date Smoking Tobacco: Never Assessed Sex and Gender Information Value Date Recorded Sex Assigned at Not on file Gender Identity Not on file Sexual Orientation Not on file documented as of this encounter Plan of Treatment Not on file documented as of this encounter Procedures Procedure Name Priority Date/Time Associated Diagnosis Comments ZZCOVID-19 TEST [facility] PCR Today 01/04/2022 10:36 EDT COVID-19 TESTING Routine 01/04/2022 10:3 6 EDT documented in this encounter Results * COVID-[address] [facility] (01/04/2022 10:36 EDT) Swab 01/04/2022 10:3 6 EDT 01/05/2022 15:51 EDT Provider Outr Resulting Lab MICROBIOLOGY - GENERAL ORDERABLES [facility] [address] [place] [address] * COVID-19 TESTING (01/04/2022 10:36 EDT) COVID-19 rt-PCR Result Negative Negative 01/06/2022 11:53 EDT [facility] Comment: This test has not been FDA cleared or approved. This test has been authorized by FDA under an EUA for use by authorized laboratories. This test has been authorized only for detection of nucleic acid from 2019-nCoV, not for any other viruses or pathogens. This test is only authorized for the duration of the declaration that circumstances exist justifying the authorization of emergency use of in vitro diagnostic tests for detection and/or diagnosis of 2019-nCoV under section 564(b)(1) of Act, 21 U.S.C ?? 360bbb-3(b) (1), unless the authorization is terminated or revoked sooner. Negative results do not preclude 2019-nCoV infection and should not be used as the sole basis for treatment or other patient management decisions. Negative results must be combined with clinical observations, patient history, and epidemiological information. Testing was performed using the briseida SARS-CoV-2 assay ([employer] on the Briseida 6800 System Performing Lab Briseida 6800 [facility] 01/06/2022 11:53 EDT [facility] Swab 01/04/2022 10:3 6 EDT 01/05/2022 15:51 EDT Provider Outr Resulting Lab MICROBIOLOGY - GENERAL ORDERABLES [facility] [address] [place] [address] documented in this encounter Visit Diagnoses Not on filedocumented in this encounter Care Teams Home Stereo Equipment Installer Relationship Specialty Start Date End Date Deepika Miller MD [address] [place] [id number] PCP - General 07/23/12 documented as of this encounter
--- OUTSIDE RECORDS SUMMARY | 2023-11-13 01:10 | XMS_ITS | Clinical Summary ---
Author Organization [facility] Address [address] [place] [address] Care Team Providers Care Aluminum Pourer Name Role Phone Deepika Miller MD Primary Care Provider [phone] Social History Tobacco Use Types Packs/Day Years Used Date Smoking Tobacco: Never Assessed Sex and Gender Information Value Date Recorded Sex Assigned at Not on file Gender Identity Not on file Sexual Orientation Not on file Plan of Treatment Health Maintenance Due Date Last Done Comments Hepatitis C Screen 1945 RSV Immunization ( o r 60+ Years) (1 - 1-dose 60+ series) 2004 Fall Risk Screening 2009 COVID-19 Vaccine ( season) 2022 Care Teams Aluminum Pourer Relationship Specialty Start Date End Date Deepika Miller MD [address] [place] [address] [address] [place] [phone] PCP - General 07/23/12
--- OUTSIDE RECORDS SUMMARY | 2023-11-13 01:10 | XMS_ITS | Encounter Summary ---
Author Organization [facility] Address [address] [place] [address] Care Team Providers Care Table Hand Name Role Phone Unknown, Provider Primary Care Provider Encounter Details Date Type Department Care Team (Late st Contact Info) Description 07/19/2012 Results Only [facility] Laboratory Services - [facility] ([facility] [address] [place] [address] [place] [address] [place] [address],[address] [place] [address] Social History Tobacco Use Types Packs/Day Years Used Date Smoking Tobacco: Never Assessed Sex and Gender Information Value Date Recorded Sex Assigned at Not on file Gender Identity Not on file Sexual Orientation Not on file documented as of this encounter Plan of Treatment Not on file documented as of this encounter Procedures Procedure Name Priority Date/Time Associated Diagnosis Comments SURGICAL PATHOLOGY Routine 07/19/2012 8:59 EDT documented in this encounter Results * SURGICAL PATHOLOGY (07/19/2012 8:59 EDT) Pathology Report: SURGICAL PATHOLOGY REPORT Reports generated via electronic interface contain original data; however they are lacking the format of the original report. Caution should be taken when reading/interpreti ng unformatted reports. Name: ? JULES GARCIA ? Accession #: ? [id number] ? : ? 1945 (Age: 67) ??F ? Collect Date: ? 07/19/2012 ? Location: ? [facility] ? Receive Date: ? 07/20/2012 ? Provider: ALEC KHAN MD Copy to: LEESA CHRISTINA MD ? Final Pathologic Diagnosis: ? Endometrium, biopsy: 1. ?Benign endocervical polyp (4.0 mm). 2. ? Fragments of benign squamous and endocervical tissue. 3. ? No definitive endometrial tissue identified. ?? Document reviewed and electronically signed by: FATOUMATA MITCHELL MD Report ??Date: 07/21/2012 12:55 By the signature above, the attending physician certifies that he/she has personally conducted a gross and/or microscopic examination of the described specimens and rendered or confirmed the above diagnosis. Specimen(s) Received: ? Endometrial biopsy Clinical History: ? Fluid in endometrial canal-postmenopaus al Gross Description: ? Received in formalin labelled Boivin, Jules and endometrium is a 2.5 x 2.5 x 0.4 cm aggregate of pink-crabtree and crabtree-red soft tissue fragments admixed with mucus. ??The specimen is entirely submitted in cassette (1). (Regan Harris)/mpl End of Report [facility] 07/19/2012 8:59 EDT 07/20/2012 8:59 EDT Alec Khan MD PATHOLOGY ORDERABLES [facility] [address] [place] [address] documented in this encounter Visit Diagnoses Not on filedocumented in this encounter Care Teams Table Hand Relationship Specialty Start Date End Date Unknown, Provider, PCP - General 09/21/09 07/22/12 documented as of this encounter
--- OUTSIDE RECORDS SUMMARY | 2023-11-13 01:10 | XMS_ITS | Encounter Summary ---
Author Organization [facility] Address [address] [place] [address] Care Team Providers Care Packer Sausage And Wiener Name Role Phone Unavailable Primary Care Provider Unavailabl e Encounter Details Date Type Department Care Team (Late st Contact Info) Description 08/30/1999 Results Only [facility] [address] [place] [address] Dalton Herrera MD [address] [place] [address] [place] [address] Social History Tobacco Use Types Packs/Day Years Used Date Smoking Tobacco: Never Assessed Sex and Gender Information Value Date Recorded Sex Assigned at Not on file Gender Identity Not on file Sexual Orientation Not on file documented as of this encounter Plan of Treatment Not on file documented as of this encounter Procedures Procedure Name Priority Date/Time Associated Diagnosis Comments CYTOPATHOLOGY Routine 08/30/1999 0:00 EDT documented in this encounter Results * CYTOPATHOLOGY (08/30/1999 0:00 EDT) Pathology Report: CYTOPATHOLOGY REPORT Reports generated via electronic interface contain original data; however they are lacking the format of the original report. Caution should be taken when reading/interpreti ng unformatted reports. Name: ? JULES GARCIA ? Accession #: ? [id number] : ? 1945 (Age: 54) ??F ?Collect Date: ? 08/30/1999 Location: ? [facility] ? Receive Date: ? 09/03/1999 Provider: ?DALTON HERRERA MD Copy to: ? Specimen/Source: ?ThinPrep Pap Test, Vagina Last Menstrual Period: ? Other: ? Additional clinical information: Post coital bleeding friable ant vagina, probably atrophic. ? SPECIMEN ADEQUACY ? Satisfactory for evaluation. GENERAL CATEGORIZATION ? Within Normal Limits ? Document reviewed and electronically signed by: ? MADDY Quintana(ASCP) ? Report Date: ??09/05/1999 08:37 End of Report [facility] 08/30/1999 09/03/1999 Dalton Herrera MD PATHOLOGY ORDERABLES [facility] [address] [place] [address] documented in this encounter Visit Diagnoses Not on filedocumented in this encounter
--- OUTSIDE RECORDS SUMMARY | 2023-11-13 01:10 | XMS_ITS | Encounter Summary ---
Author Organization [facility] Address [address] [place] [address] Care Team Providers Care Battery Recharger Name Role Phone Deepika Miller MD Primary Care Provider [phone] Encounter Details Date Type Department Care Team (Late st Contact Info) Description 09/17/2021 Lab Requisition [facility] Pathology & Laboratory Medicine - [facility] [address] [place] [address] Outr Resulting Lab, Provider Social History Tobacco [...] Procedure Name Priority Date/Time Associated Diagnosis Comments CELIAC DISEASE PANEL Routine 09/16/2021 8:25 EDT PTH INTACT Routine 09/16/2021 8:25 EDT documented in this encounter Results * PTH INTACT (09/16/2021 8:25 EDT) Intact PTH 87 19 - 88 pg/mL 09/18/2021 10:42 EDT [facility] Blood VENOUS BLOOD / Unknown 09/16/2021 8:25 EDT 09/17/2021 17:19 EDT Provider Outr Resulting Lab CHEMISTRY & BLOOD GAS ORDERABLES [facility] [address] [place] [address] * CELIAC DISEASE PANEL (09/16/2021 8:25 EDT) Tissue Transglutaminase Antibody IGA <1.2 <4.0 U/mL 09/18/2021 11:07 EDT [facility] Comment: A negative result may be due to IgA deficiency and does not rule out celiac disease. ? Negative: ??<4.0 U/mL ? Weak Positive: ??4.0 - 10.0 U/mL ? Positive: ??>10.0 U/mL Results were obtained with the OptiantA Lite R h-tTG IgA ALMA assay on the [employer]. IgA 307 85 - 499 mg/dL 09/18/2021 11:07 EDT [facility] Celiac Disease Interpretation Negative Serology. Celiac disease unlikely. Approximately 10% of patients with celiac disease are seronegative. Patients who are already adhering to a gluten-free diet may also be seronegative. If celiac disease is highly clinically suspected, referral to gastroenterology for additional evaluation is recommended. 09/18/2021 11:07 EDT [facility] Blood VENOUS BLOOD / Unknown 09/16/2021 8:25 EDT 09/17/2021 17:19 EDT Provider Outr Resulting Lab IMMUNOLOGY A ND SEROLOGY ORDERABLES Performing Organization Address City/State/[facility] Co de Phone Number [facility] [address] [place] [address] documented in this encounter Visit Diagnoses Not on filedocumented in this encounter Care Teams Battery Recharger Relationship Specialty Start Date End Date Deepika Miller MD [address] [place] [phone] PCP - General 07/23/12 documented as of this encounter
--- OUTSIDE RECORDS SUMMARY | 2023-11-13 01:10 | XMS_ITS | Encounter Summary ---
Author Organization [facility] Address [address] [place] [address] Care Team Providers Care Snack Steward Name Role Phone Unavailable Primary Care Provider Unavailabl e Encounter Details Date Type Department Care Team (Late st Contact Info) Description 09/18/2009 Results Only [facility] Non-Invasive Cardiology - [facility] [address] [place] [address] Sandra Galarza ARNP [address] [place] [address] Social History Tobacco Use Types Packs/Day Years Used Date Smoking Tobacco: Never Assessed Sex and Gender Information Value Date Recorded Sex Assigned at Not on file Gender Identity Not on file Sexual Orientation Not on file documented as of this encounter Plan of Treatment Not on file documented as of this encounter Procedures Procedure Name Priority Date/Time Associated Diagnosis Comments CYTOPATHOLOGY Routine 09/18/2009 0:00 EDT documented in this encounter Results * CYTOPATHOLOGY (09/18/2009 0:00 EDT) Pathology Report: CYTOPATHOLOGY REPORT ? Reports generated via electronic interface contain original data; ? however they are lacking the format of the original report. ? Caution should be taken when reading/interpreti ng unformatted reports. ? Name: ? JULES GARCIA ? Accession #: ? [id number] ? : ? 1945 (Age: 64) ??F ?Collect Date: ? 09/18/2009 ? Location: ? [facility] ? Receive Date: ? 09/20/2009 ? Provider: ?SANDRA CALABRESE ? Copy to: ? Specimen/Source: ?Pap Test, Endocervix, ThinPrep Imaging System with ? manual evaluation ? Last Menstrual Period: ? Menstrual/Pregnanc y Status: ? Post Menopausal ? Other: ? HPVA - HPV testing requested if ASC-US on the current ThinPrep Pap test. ? SPECIMEN ADEQUACY ? Satisfactory for Evaluation ? - transformation zone component present ? GENERAL CATEGORIZATION ? Negative for Intraepithelial Lesion or Malignancy ? INTERPRETATION ? Reactive cellular changes associated with inflammation present (includes ?? repair). ? Document reviewed and electronically signed by: ? Joby Pepe Rio, MD ? Report Date: ??09/26/2009 11:40 ? End of Report ? [facility] 09/18/2009 09/20/2009 Sandra CALABRESE PATHOLOGY ORDERABLES [facility] [address] [place] [address] documented in this encounter Visit Diagnoses Not on filedocumented in this encounter
--- OUTSIDE RECORDS SUMMARY | 2023-11-13 01:10 | XMS_ITS | Encounter Summary ---
Author Organization [facility] [place] [address] Care Team Providers Care Strategic Partnership Manager Name Role Phone Sandra Galarza APRN Primary Care Provider [phone] Encounter Details Date Type Department Care Team (Latest Contact Info) Description 12/09/2019 10:19 PM EDT - 12/09/2019 11:59 PM EDT Hospital [place] [id number] Discharge Disposition: Home Social History Tobacco Use Types Packs/Day Years Used Date Smoking Tobacco: Never Assessed Sex and Gender Information Value Date Recorded Sex Assigned at Not on file Gender Identity Not on file Sexual Orientation Not on file documented as of this encounter Plan of Treatment Not on file documented as of this encounter Procedures Procedure Name Priority Date/Time Associated Diagnosis Comments COVID-19 PCR Routine 12/09/2019 12:01 AM EDT documented in this encounter Results * COVID-19 PCR (12/09/2019 12:01 AM EDT) SARS-CoV-2 RNA Not Detected Not Detected [facility] Comment: This result should be interpreted in combination with the clinical observations, patient history and epidemiological information. For testing of asymptomatic individuals, assay performance characteristics and clinical utility have not been evaluated. Testing for SARS-CoV-2 (Severe acute respiratory syndrome coronavirus 2, formerly known as 2019 novel coronavirus or 2019-nCoV) to aid in the diagnosis of COVID-19 is performed using the [employer] RealTime SARS-CoV-2 as authorized by the FDA Emergency Use Authorization (EUA). This EUA assay is intended for In-vitro Diagnostic (IVD) use with respiratory specimens such as nasopharyngeal swabs collected from individuals during the acute phase of infection. This assay is performed based on the instructions for use provided by the [employer] and additional guidance provided by CDC and FDA. Testing is performed in the [facility]omics [facility] Technology Laboratory within the Department of Pathology and Laboratory Medicine at [facility], certified under the Clinical Laboratory Improvement Amendments of 1988 (CLIA), 42 U.S.C. section 263a, to perform high complexity tests. Assay performance has been verified according to clinical laboratory regulatory requirements. Test results are provided above. A result of Not Detected indicates that the viral RNA target is not present but does not preclude SARS-CoV-2 infection. False negative results may occur if a specimen is improperly collected, transported or handled; if amplification inhibitors are present; or if inadequate numbers of viral particles are present in the specimen. A result of Detected suggests a current or recent infection and the patient is presumed to be infected. As required or requested by public health authorities, positive specimens may be sent for additional testing. Positive and negative predictive values for this test are highly dependent on disease prevalence. A result of Invalid indicates that neither the viral RNA targets nor the internal control target was detected. An invalid result suggests the presence of inhibitors. Recollection is recommended in the case of an invalid result. CDC COVID-19 criteria for testing on human specimens and clinical management guidance information are available at the CDC Coronavirus Disease 2019 (COVID-19) webpage under Information for Healthcare Professionals (https://www.cdc.gov/coronavirus/2019-ncov/hcp/index.html) Additional information about this and other EUA tests can be found in provider and patient fact sheets at the following FDA website: https://www.fda.gov/medical-devices/onfywdgmc-sipsuzljgv-mmorrfq-devices/emergen -us e-authorizations#hseke57cth SARS-Cov-2 RNA Source INDUSTRIAL RELATIONS REPRESENTATIVE Swab [facility] Nasopharyngeal swab (specimen) Other / Unknown 12/09/2019 12:01 AM EDT 12/10/2019 12:15 AM EDT Narrative Resulting Agency Comment Spec In Lab Ra Chang DO MICROBIOLOGY - GENERAL [place] [address] documented in this encounter Visit Diagnoses Not on filedocumented in this encounter Care Teams Strategic Partnership Manager Relationship Specialty Start Date End Date Sandra Galarza APRN PCP - General 08/01/10 documented as of this encounter
--- OUTSIDE RECORDS SUMMARY | 2023-11-13 01:10 | XMS_ITS | Referral Summary ---
Author Organization [facility] Address [address] [place] [address] Care Team Providers Care Repair Armature Winder Helper Name Role Phone Deepika Miller MD Primary Care Provider [phone] Social History Tobacco Use Types Packs/Day Years Used Date Smoking Tobacco: Never Assessed Sex and Gender Information Value Date Recorded Sex Assigned at Not on file Gender Identity Not on file Sexual Orientation Not on file Plan of Treatment Not on file Care Teams Repair Armature Winder Helper Relationship Specialty Start Date End Date Deepika Miller MD [address] [place] [phone] PCP - General 07/23/12
--- OUTSIDE RECORDS SUMMARY | 2023-11-13 01:10 | XMS_ITS | Encounter Summary ---
Author Organization [facility] Address [address] [place] [address] Care Team Providers Care Home Therapy Clinician Name Role Phone Deepika Christina MD Primary Care Provider [phone] Encounter Details Date Type Department Care Team (Late st Contact Info) Description 10/20/2014 Results Only [facility] [phone] Shoshana Lacy, DO [address] [place] [address] Social History Tobacco Use Types Packs/Day Years Used Date Smoking Tobacco: Never Assessed Sex and Gender Information Value Date Recorded Sex Assigned at Not on file Gender Identity Not on file Sexual Orientation Not on file documented as of this encounter Plan of Treatment Not on file documented as of this encounter Procedures Procedure Name Priority Date/Time Associated Diagnosis Comments SURGICAL PATHOLOGY Routine 10/20/2014 7:41 EDT documented in this encounter Results * SURGICAL PATHOLOGY (10/20/2014 7:41 EDT) Pathology Report: SURGICAL PATHOLOGY REPORT Reports generated via electronic interface contain original data; however they are lacking the format of the original report. Caution should be taken when reading/interpret ing unformatted reports. Name: ? ALFREDO GARCIAILE Raisa ? Accession #: ? [id number] ? : ? 1945 (Age: 69) ??F ? Collect Date: ? 10/20/2014 ? Location: ? [facility] ? Receive Date: ? 10/20/2014 ? Provider: SHOSHANA LACY DO Copy to: DEEPIKA CHRISTINA MD ? Final Pathologic Diagnosis: COLON, CECUM, POLYP, BIOPSY: - ??Tubular adenoma. Document reviewed and electronically signed by: ZOILA GORDON MD Report ??Date: 10/24/2014 14:37 By the signature above, the attending physician certifies that he/she has personally conducted a gross and/or microscopic examination of the described specimens and rendered or confirmed the above diagnosis. Specimen(s) Received: Cecal polyp Clinical History: Colorectal screen Gross Description: ? Received in formalin labelled with proper patient identification (initials B, C) and cecal polyp is a single pink-crabtree tissue fragment (0.2 x 0.1 x 0.1 cm). Submitted intact in 1. Priyanka Kaye 10/23/2014 8:[address] [facility] 10/20/2014 7:41 EDT 10/20/2014 7:41 EDT Shoshana Lacy DO PATHOLOGY ORDERABLES Performing Organization Address City/State/[facility] Co de Phone Number [facility] [address] [place] [address] documented in this encounter Visit Diagnoses Not on filedocumented in this encounter Care Teams Home Therapy Clinician Relationship Specialty Start Date End Date Deepika Christina MD [address] [place] [phone] PCP - General 07/23/12 documented as of this encounter
--- OUTSIDE RECORDS SUMMARY | 2023-11-13 01:10 | XMS_ITS | Clinical Summary ---
Author Organization [facility] [place] [address] Care Team Providers Care Transit Clerk Name Role Phone Sandra Galarza APRN Primary Care Provider [phone] Social History Tobacco Use Types Packs/Day Years Used Date Smoking Tobacco: Never Assessed Sex and Gender Information Value Date Recorded Sex Assigned at Not on file Gender Identity Not on file Sexual Orientation Not on file Plan of Treatment Health Maintenance Due Date Last Done Comments Hepatitis C Screening 1962 Tdap adult 1963 Tetanus vaccine 1963 Zoster vaccine (1 of 2) 1994 Advance Directive 1999 Bone Density Scan 2009 Pneumoccocal Vaccine: 65+ (1 of 1 - PCV) 2009 Covid-19 Vaccine ( - season) 2022 Influenza (Flu) vaccine (1 o f 1 - Influenza standard series) 12/13/2023 Care Teams Transit Clerk Relationship Specialty Start Date End Date Sandra Galarza APRN PCP - General 08/01/10
--- OUTSIDE RECORDS SUMMARY | 2023-11-13 01:10 | XMS_ITS | Encounter Summary ---
Author Organization [facility] Address [address] [place] [address] Care Team Providers Care Trousseau Consultant Name Role Phone Deepika Miller MD Primary Care Provider [phone] Encounter Details Date Type Department Care Team (Latest Contact Info) Description 10/20/2014 10:00 EDT - 10/20/2014 23:59 EDT Hospital Encounter [address] [address] Unknown, Provider, Discharge Disposition: Home or Self Care Social History Tobacco Use Types Packs/Day Years Used Date Smoking Tobacco: Never Assessed Sex and Gender Information Value Date Recorded Sex Assigned at Not on file Gender Identity Not on file Sexual Orientation Not on file documented as of this encounter Discharge Disposition Disposition Code Departure Means Destination Home or Self Usp documented in this encounter Plan of Treatment Not on file documented as of this encounter Visit Diagnoses Not on filedocumented in this encounter Care Teams Trousseau Consultant Relationship Specialty Start Date End Date Deepika Miller MD [address] [place] [phone] PCP - General 07/23/12 documented as of this encounter
--- NOTE | 2023-11-13 12:45 | DI.MAMMO_ITS ---
Exam(s) MAMMO SCREENING EXAM: MAMMO SCREENING CLINICAL HISTORY: SCREENING, Z12.31 TECHNIQUE: Mammograms were interpreted according to the usual protocol including computer analysis w [employer] CAD system, tomosynthesis and C-view imaging. COMPARISON: 2014 through 2021 FINDINGS: The breasts are composed of scattered fibroglandular densities, Breast Density category B. No suspicious masses or suspicious microcalcifications are seen. No skin thickening or abnormal axillary lymph nodes are seen. There has been no significant change from prior exams. IMPRESSION: BI-RADS Category 1, Negative mammogram Yearly screening mammography is recommended. Breast Density - Category B, scattered fibroglandular densities. A negative radiographic report should not delay biopsy if a dominant or clinically suspicious mass is present. Up to ten percent of cancers are not identified on mammography. A negative report may reinforce clinical impression. Adenosis and dense breasts may obscure an underlying neoplasm. False positive reports average 6 to 10%. Patient will receive a letter notifying them of these results.
== END ==
PROVIDERS: PCP Family Medicine; Visit Provider Family Medicine
DX: Z12.31 Encounter for screening mammogram for malignant neoplasm of breast (principal)
CPT/HCPCS: 77063; 77067

== ENCOUNTER 2024-04-20 13:05 | Outpatient (REF) | payer MEDICARE, SELFPAY ==
--- OUTSIDE RECORDS SUMMARY | 2024-04-20 13:10 | XMS_ITS | Encounter Summary ---
Author Organization [facility] Address [address] [place] [address] Care Team Providers Care Community Sports Coordinator Name Role Phone Deepika Miller MD Primary Care Provider [phone] Encounter Details Date Type Department Care Team (Latest Contact Info) Description 10/20/2014 10:00 EDT - 10/20/2014 23:59 EDT Hospital Encounter [address] [address] Unknown, Provider, MD Discharge Disposition: Home or Self Care Social History Tobacco Use Types Packs/Day Years Used Date Smoking Tobacco: Never Assessed Comments Unknown Sex and Gender Information Value Date Recorded Sex Assigned at Not on file Legal Sex Female 18:24 EST Gender Identity Not on file Sexual Orientation Not on file documented as of this encounter Discharge Disposition Disposition Code Departure Means Destination Home or Self Nursing Home documented in this encounter Plan of Treatment Not on file documented as of this encounter Visit Diagnoses Not on filedocumented in this encounter Care Teams Community Sports Coordinator Relationship Specialty Start Date End Date Deepika Miller MD [address] [place] [phone] PCP - General 07/23/12 documented as of this encounter
--- OUTSIDE RECORDS SUMMARY | 2024-04-20 13:10 | XMS_ITS | Referral Summary ---
Author Organization [facility] Address [address] [place] [address] Care Team Providers Care Admitting Clerk Name Role Phone Deepika Miller MD Primary Care Provider [phone] Social History Tobacco Use Types Packs/Day Years Used Date Smoking Tobacco: Never Assessed Comments Unknown Sex and Gender Information Value Date Recorded Sex Assigned at Not on file Legal Sex Female 18:24 EST Gender Identity Not on file Sexual Orientation Not on file Plan of Treatment Not on file Care Teams Admitting Clerk Relationship Specialty Start Date End Date Deepika Miller MD [address] [place] [phone] PCP - General 07/23/12
--- OUTSIDE RECORDS SUMMARY | 2024-04-20 13:10 | XMS_ITS ---
Author Organization Unknown Address [address] [place] [phone] Phone Care Team Providers Care Title Processor Name Role Phone JAMAL MEADOWS Attending Unavailable Social History Type Status Start Date End Date Code Code Syst em Smoking History Never smoker (Never Smoked) 894696099 SNOMED CT Sex Female Medications Medication Start Date End Date Route Frequency Dose Code Code System Medication Instructions Home Meds Atorvastatin Calcium 40MG Oral Tablet 03/25/2024 Unknown ORAL DAILY 40 MILLIGRAMS 314879 RxNorm TAKE 40 MILLIGRAMS ORAL DAILY FLUoxetine 10MG Oral Capsule 03/25/2024 Unknown ORAL DAILY 10 MILLIGRAMS 430670 RxNorm TAKE 10 MILLIGRAMS ORAL DAILY metFORMIN HCl 1000MG Oral Tablet 03/25/2024 Unknown ORAL DAILY 1000 MILLIGRAMS 935940 RxNorm TAKE 1000 MILLIGRAMS ORAL DAILY Clindamycin 300MG Oral Capsule 03/25/2024 Unknown ORAL FOUR TIMES A DAY 1 CAPSULE 789954 RxNorm TAKE 1 CAPSULE ORAL FOUR TIMES A DAY STARTING TONIGHT 03/25 Assessment You had the following problems:DIABETES 2SYNCOPEDENTAL INFECTION Hospital Discharge Instructions Should you have any questions prior to discharge, please contact a member of your healthcare team. If you have left the hospital and have any questions, please contact your primary care physician. Reason For Referral No Data Found Problems Problem Start Date Resolved Date Status Code Code System DIABETES 2 active 52087963 SNOMED-CT SYNCOPE active 834420522 SNOMED-CT DENTAL INFECTION active 709738159 SNO MED-CT HIGH CHOLESTEROL 03/24/2024 resolved 89153958 SN OMED-CT DEPRESSION 03/24/2024 resolved 28346588 SNOMED-C T COMPRESSION FRACTURE 03/24/2024 resolved [id number] 9 SNOMED-CT Allergies and Adverse Reactions Allergy Substance Reaction Severity Start Date Concern Status Co de Code System No Known Drug Allergies Active 121121230 SNOMED-CT Plan of Treatment No Data Found Personal Care Team Section Performer Name Performer Role Active Date Inactive Evangelista Caldwell PCP - Primary care physician 2024-03-24
--- OUTSIDE RECORDS SUMMARY | 2024-04-20 13:10 | XMS_ITS | Clinical Summary ---
Author Organization [facility] Address [address] [place] [address] Care Team Providers Care Shrimp Trawler Captain Name Role Phone Deepika Miller MD Primary Care Provider [phone] Social History Tobacco Use Types Packs/Day Years Used Date Smoking Tobacco: Never Assessed Comments Unknown Sex and Gender Information Value Date Recorded Sex Assigned at Not on file Legal Sex Female 18:24 EST Gender Identity Not on file Sexual Orientation Not on file Plan of Treatment Health Maintenance Due Date Last Done Comments Hepatitis C Screen 1945 Fall Risk Screening 2009 RSV Immunization ( o r 60+ Years) (1 - 1-dose 75+ series) 2019 COVID-19 Vaccine ( season) 2023 Care Teams Shrimp Trawler Captain Relationship Specialty Start Date End Date Deepika Miller MD [address] [place] [address] [address] [place] [phone] PCP - General 07/23/12
--- OUTSIDE RECORDS SUMMARY | 2024-04-20 13:10 | XMS_ITS | Encounter Summary ---
Author Organization [facility] [place] [address] Care Team Providers Care Button And Buckle Maker Name Role Phone Sandra Galarza APRN Primary Care Provider [phone] Encounter Details Date Type Department Care Team (Latest Contact Info) Description 12/09/2019 10:19 PM EDT - 12/09/2019 11:59 PM EDT Hospital [place] [phone] Discharge Disposition: Home Social History Tobacco Use [...] EDT) SARS-CoV-2 RNA Not Detected Not Detected [facility] Comment: This result should be interpreted [...] the instructions for use provided by the [employer] and additional guidance provided by CDC and FDA. Testing is performed in the Clinical Genomics [facility] Technology Laboratory within the Department of Pathology and Laboratory Medicine at [facility], certified under the Clinical Laboratory Improvement Amendments [...] fact sheets at the following FDA website: https://www.fda.gov/medical-devices/scewlqwwm-uadpjuauer-fudnizm-devices/emergen -us e-authorizations#dslya59xfr SARS-CoV-2 RNA Source ENVIRONMENTAL PROFESSIONAL Swab [facility] Nasopharyngeal swab (specimen) Other / Unknown 12/09/2019 12:01 AM EDT 12/10/2019 12:15 AM EDT Narrative Resulting Agency Comment Spec In Lab Ra [place] [address] documented in this encounter Visit Diagnoses Not on filedocumented in this encounter Care Teams Button And Buckle Maker Relationship Specialty Start Date End Date Sandra Galarza APRN PCP - General 08/01/10 documented as of this encounter
--- OUTSIDE RECORDS SUMMARY | 2024-04-20 13:10 | XMS_ITS | Encounter Summary ---
Author Organization [facility] Address [address] [place] [address] Care Team Providers Care Mower Operator Name Role Phone Unavailable Primary Care Provider Unavailabl e Encounter Details Date Type Department Care Team (Late st Contact Info) Description 08/30/1999 Results Only [facility] conversion [address] [place] [address] Dalton Herrera MD [address] [facility] [address] [place] [address] Social History Tobacco Use Types [...] ? JULES GARCIA ? Accession #: ? [id number] : ? 1945 (Age: 54) ??F ?Collect [...] End of Report MOLLY SIMONS 08/30/1999 09/03/1999 us Dalton Herrera MD PATHOLOGY ORDERABLES Final Resu lt MOLLY SIMONS [address] [place] [address] documented in this encounter Visit Diagnoses Not on filedocumented in this encounter
--- OUTSIDE RECORDS SUMMARY | 2024-04-20 13:10 | XMS_ITS | Encounter Summary ---
Author Organization [facility] Address [address] [place] [address] Care Team Providers Care Fifth Hand Name Role Phone Deepika Christina MD Primary Care Provider [phone] Encounter Details Date Type Department Care Team (Late st Contact Info) Description 10/20/2014 Results Only [facility] [phone] Shoshana Lacy, DO [address] [place] [address] Social History Tobacco Use Types [...] when reading/interpret ing unformatted reports. Name: ? RADHA JULES R ? Accession #: ? [id number] ? : ? 1945 (Age: 69) ??F [...] Kaye 10/23/2014 8:27 AM End of Report [facility] 10/20/2014 7:41 EDT 10/20/2014 7:41 EDT us Shoshana Lacy DO PATHOLOGY ORDERABLES Final Res ult [facility] [address] [place] [address] documented in this encounter Visit Diagnoses Not on filedocumented in this encounter Care Teams Fifth Hand Relationship Specialty Start Date End Date Deepika Christina MD [address] [place] [phone] PCP - General 07/23/12 documented as of this encounter
--- OUTSIDE RECORDS SUMMARY | 2024-04-20 13:10 | XMS_ITS ---
Author Organization Unknown Address [address] [place] [phone] Phone Care Team Providers Care Landscape Architect And Planner Name Role Phone SAMM ABHINAV Registered Nurse Unavailable JAMAL MEADOWS Attending Unavailable FRANKI Cristina [facility] Unavailable SANFORD Tyler Primary Unavailable RELAURIE GIBBS Secondary Unavailable UNLISTED PROVIDER - REQUESTED Xhandoff Un available Results NOVA GLUCOSE FINGER HEEL CAP ILLARY - Collect Date/Time: 03/25/2024 07:53 [facility] ID: [id number] [address] [place] [address], [id number] LOINC: 54390-7 Test Value Unit Reference Range Code Code System Flag GLUCOSE CAP 161 mg/dL L=70 H=116 84051-5 LOINC H BASIC METABOLIC PANEL (BMP) - Collect Date/Time: 03/25/2024 06:51 [facility] ID: [id number] [address] [place] [address], [address] LOINC: 28988-9 Test Value Unit Reference Range Code Code System Flag GLUCOSE 135 mg/dL L=70 H=116 2345-7 LOINC H BUN 13 mg/dL L=7 H=17 3094-0 LOINC CREATININE 0.81 mg/dL L=0.52 H=1.04 2160-0 LOINC SODIUM SERUM 137 mmol/L L=136 H=145 2951-2 LOINC POTASSIUM SERUM 4.2 mmol/L L=3.4 H=5.2 2823-3 LOINC CHLORIDE SERUM 97 mmol/L L=98 H=107 2075-0 LOINC L CARBON DIOXIDE (CO2) 31 mmol/L L=22 H=30 2028-9 LOINC H ANION GAP 8.7 mmol/L 22613-6 LOINC CALCIUM SERUM 9.4 mg/dL L=8.4 H=10.2 97061-5 LOINC AGE 79 years eGFR (non-Afr.Amer.) 68 mL/min 77374-3 LOINC eGFR (Afr-Monegasque) 82 mL/min 56326-4 LOINC CBC W/ DIFFERENTIAL* - Colle ct Date/Time: 03/25/2024 06:51 [facility] ID: [id number] [address], [place], [address] LOINC: 02411-1 Test Value Unit Reference Range Code Code System Flag WBC 7.26 th/cmm L=5.00 H=10.00 6690-2 LOINC NEUT % 62.1 % L=40.0 H=80.0 LYMPH % 26.4 % L=10.0 H=50.0 MONO % 10.1 % L=2.0 H=12.0 74109-1 LOINC EOS % 0.8 % L=0.0 H=8.0 BASO % 0.3 % L=0.0 H=3.0 IG % 0.3 % L=0.0 H=1.1 2514-8 LOINC NRBC % 0.0 % L=0.0 H=0.0 35620-2 LOINC NEUT abs count 4.5 th/cmm L=1.6 H=8.4 751-8 LOINC LYMPH abs count 1.9 th/cmm L=1.5 H=4.0 731-0 LOINC MONO abs count 0.7 th/cmm L=0.2 H=1.0 742-7 LOINC EOS abs count 0.1 th/cmm L=0.0 H=0.5 711-2 LOINC BASO abs count 0.0 th/cmm L=0.0 H=0.2 704-7 LOINC IG abs count 0.0 th/cmm L=0.0 H=0.1 93566-1 LOINC NRBC abs count 0.0 mil/cmm L=0.0 H=0.0 47323-7 LOINC RBC 4.14 mil/cmm L=3.90 H=5.40 789-8 LOINC HEMOGLOBIN 11.6 gm/dL L=12.0 H=16.0 718-7 LOINC L HEMATOCRIT 37 % L=37 H=47 4544-3 LOINC MCV 89 fL L=82 H=92 787-2 LOINC MCH 28.0 pg L=27.0 H=31.0 785-6 LOINC MCHC 31.4 % L=32.0 H=36.0 786-4 LOINC L RDW-SD 41.4 fL L=39.0 H=49.0 788-0 LOINC PLATELET COUNT 318 th/cmm L=150 H=450 777-3 LOINC TROPONIN-I* - Collect Date/T adina: 03/24/2024 17:36 [facility] ID: [id number] [address] [place] [address], [address] LOINC: 04620-7 Test Value Unit Reference Range Code Code System Flag TROPONIN-I < 0.012 ng/mL L=0.000 H=0.034 13215-1 [facility] Specimen seq. 3 HOUR URINALYSIS WITH MICROSCOPIC* - Collect Date/Time: 03/24/2024 15:44 [facility] ID: [id number] [address] [place] [address], [address] LOINC: 69430-9 Test Value Unit Reference Range Code Code System Flag COLLECTION MODE: CLEAN CATCH 48240-4 LOINC Color YELLOW yellow 5778-6 LOINC Appearance CLEAR clear 5767-9 LOINC Glucose urine 250 negative mg/dl 69641-5 LOINC A Bilirubin NEGATIVE negative 5770-3 LOINC Ketones TRACE negative mg/dl 2514-8 LOINC A Spec gravity 1.025 1.003 - 1.030 5811-5 LOINC pH urine 5.5 5.0 - 7.0 2756-5 LOINC Protein TRACE negative mg/dl 71154-5 LOINC Urobilinogen 1.0 <or= 1 EU/dl 64812-0 LOINC A Nitrite NEGATIVE negative 5802-4 LOINC Blood NEGATIVE negative 5794-3 LOINC Leukocytes TRACE negative 86161-0 LOINC A WBCs 0-5 0-5 / hpf 68921-9 LOINC RBCs 0-5 0-5 / hpf 68831-8 LOINC Epith cells 0-5 0-5 / hpf 90170-3 LOINC Cell types squamous Crystals none none Bacteria minimal none Mucus none none Casts none none /lpf Other LACTIC ACID - Collect Date/T adina: 03/24/2024 14:55 [facility] ID: [id number] [address] [place] [address], [address] LOINC: Test Value Unit Reference Range Code Code System Flag LACTIC ACID 1.7 mmol/L L=0.7 H=2.1 13854-8 LOINC LIPASE* NEW - Collect Date/T adina: 03/24/2024 14:28 [facility] ID: [id number] [address] [place] [address], [id number] LOINC: 3040-3 Test Value Unit Reference Range Code Code System Flag LIPASE. 77 U/L L=23 H=300 TROPONIN-I* - Collect Date/T adina: 03/24/2024 14:28 [facility] ID: [id number] [address] [place] [address], [address] LOINC: 44327-1 Test Value Unit Reference Range Code Code System Flag TROPONIN-I < 0.012 ng/mL L=0.000 H=0.034 43483-9 LOINC Specimen seq. RANDOM COMPREHENSIVE METABOLIC PANE L (CMP) - Collect Date/Time: 03/24/2024 14:28 [facility] ID: [id number] [address] [place] [address], [address] LOINC: 71411-5 Test Value Unit Reference Range Code Code System Flag GLUCOSE 194 mg/dL L=70 H=116 2345-7 LOINC H BUN 11 mg/dL L=7 H=17 3094-0 LOINC CREATININE 0.83 mg/dL L=0.52 H=1.04 2160-0 LOINC SODIUM SERUM 135 mmol/L L=136 H=145 2951-2 LOINC L POTASSIUM SERUM 4.0 mmol/L L=3.4 H=5.2 2823-3 LOINC CHLORIDE SERUM 97 mmol/L L=98 H=107 2075-0 LOINC L CARBON DIOXIDE (CO2) 29 mmol/L L=22 H=30 2028-9 LOINC ANION GAP 9.8 mmol/L 82988-8 LOINC CALCIUM SERUM 9.5 mg/dL L=8.4 H=10.2 51273-8 LOINC BILIRUBIN TOTAL 1.7 mg/dL L=0.2 H=1.3 1975-2 LOINC H ALK. PHOS. 113 U/L L=38 H=126 6768-6 LOINC SGOT (AST) 23 U/L L=14 H=36 1920-8 LOINC SGPT (ALT) 18 U/L L=4 H=35 1742-6 LOINC TOTAL PROTEIN 7.9 gm/dL L=6.0 H=8.0 2885-2 LOINC ALBUMIN 4.5 gm/dL L=3.4 H=5.0 1751-7 LOINC AGE 79 years eGFR (non-Afr.Amer.) 66 mL/min 07316-3 LOINC eGFR (Afr-Monegasque) 80 mL/min 17734-1 LOINC CBC W/ DIFFERENTIAL* - Colle ct Date/Time: 03/24/2024 14:28 [facility] ID: [id number] [address], [place], [address] LOINC: 37202-4 Test Value Unit Reference Range Code Code System Flag WBC 10.56 th/cmm L=5.00 H=10.00 6690-2 LOINC H NEUT % 81.9 % L=40.0 H=80.0 H LYMPH % 11.2 % L=10.0 H=50.0 MONO % 6.0 % L=2.0 H=12.0 00817-2 LOINC EOS % 0.2 % L=0.0 H=8.0 BASO % 0.3 % L=0.0 H=3.0 IG % 0.4 % L=0.0 H=1.1 2514-8 LOINC NRBC % 0.0 % L=0.0 H=0.0 49030-8 LOINC NEUT abs count 8.7 th/cmm L=1.6 H=8.4 751-8 LOINC H LYMPH abs count 1.2 th/cmm L=1.5 H=4.0 731-0 LOINC L MONO abs count 0.6 th/cmm L=0.2 H=1.0 742-7 LOINC EOS abs count 0.0 th/cmm L=0.0 H=0.5 711-2 LOINC BASO abs count 0.0 th/cmm L=0.0 H=0.2 704-7 LOINC IG abs count 0.0 th/cmm L=0.0 H=0.1 59651-4 LOINC NRBC abs count 0.0 mil/cmm L=0.0 H=0.0 87094-0 LOINC RBC 4.39 mil/cmm L=3.90 H=5.40 789-8 LOINC HEMOGLOBIN 12.7 gm/dL L=12.0 H=16.0 718-7 LOINC HEMATOCRIT 40 % L=37 H=47 4544-3 LOINC MCV 90 fL L=82 H=92 787-2 LOINC MCH 28.9 pg L=27.0 H=31.0 785-6 LOINC MCHC 32.1 % L=32.0 H=36.0 786-4 LOINC RDW-SD 41.3 fL L=39.0 H=49.0 788-0 LOINC PLATELET COUNT 317 th/cmm L=150 H=450 777-[address] FACIAL OR SINUS WO CONTRA ST - Completed: 03/24/2024 14:45 LOINC: [facility] [place], [place] [address] RADIOLOGY SUPERVISOR CABINETMAKER REPORT Patient Name: JULES GARCIA MRN: Sex: : Age: [id number] F 1945 79 Account: Accession: Admit: StayType: [id number] 03/24/2024 E Ordered: Order ID: Submitted: Ordering Provider: 03/24/2024 14:24 [id number] JOSE HEATH Completed: Technologist: Resulted: 03/24/2024 14:35 CML 03/24/2024 15:12 EXAMINATION: CT HEAD AND CSPINE WO CONTRAST, CT FACIAL OR SINUS WO CONTRAST CLINICAL HISTORY: Reason for Spine: Trauma Add'l Info: TECHNIQUE: CT head , face, and cervical spine performed without intravenous contrast administration. COMPARISON: None FINDINGS: Head CT: Small amount of soft tissue induration over the RIGHT occipital calvarium. No underlying calvarial fractures. No intracranial hemorrhage. No mass or mass effect. No extra-axial collection. Mild diffuse prominence of subarachnoid spaces and occipital horns of the lateral ventricles likely represents age-related parenchymal volume loss. No territorial abnormalities of ford-white matter differentiation. Mastoid air cells are clear. CT face: No fractures of the facial bones. Orbital contents are grossly normal. Globes are intact. Mucosal thickening ethmoid air cells and circumferential mucosal thickening in the RIGHT maxillary sinus. Sphenoid sinuses clear. No acute traumatic abnormality of the mandible. No significant CT abdomen soft tissue abnormality over the face identified. Cervical spine: Straightening of the normal cervical lordosis. Atlantooccipital relationships are normal. No traumatic malalignment of the cervical spine. No cervical spine fractures. No prevertebral soft tissue abnormality. IMPRESSION: No acute intracranial process. No traumatic abnormality of the face. No cervical spine fractures. Thank you for letting us participate in the care of this patient. If you are a health care provider and have any questions regarding this report, please contact the number below. For patients who have questions please contact the health multi care technician that requested your imaging first. HEAD AND CSPINE WO CONTRA ST* - Completed: 03/24/2024 14:45 LOINC: [facility] [place], [place] [address] RADIOLOGY SUPERVISOR CABINETMAKER REPORT Patient Name: JULES GARCIA MRN: Sex: : Age: [id number] F 1945 79 Account: Accession: Admit: StayType: [id number] 03/24/2024 E Ordered: Order ID: Submitted: Ordering Provider: 03/24/2024 14:24 [id number] JOSE HEATH Completed: Technologist: Resulted: 03/24/2024 14:31 CML 03/24/2024 15:12 EXAMINATION: CT HEAD AND CSPINE WO CONTRAST, CT FACIAL OR SINUS WO CONTRAST CLINICAL HISTORY: Reason for Spine: Trauma Add'l Info: TECHNIQUE: CT head , face, and cervical spine performed without intravenous contrast administration. COMPARISON: None FINDINGS: Head CT: Small amount of soft tissue induration over the RIGHT occipital calvarium. No underlying calvarial fractures. No intracranial hemorrhage. No mass or mass effect. No extra-axial collection. Mild diffuse prominence of subarachnoid spaces and occipital horns of the lateral ventricles likely represents age-related parenchymal volume loss. No territorial abnormalities of ford-white matter differentiation. Mastoid air cells are clear. CT face: No fractures of the facial bones. Orbital contents are grossly normal. Globes are intact. Mucosal thickening ethmoid air cells and circumferential mucosal thickening in the RIGHT maxillary sinus. Sphenoid sinuses clear. No acute traumatic abnormality of the mandible. No significant CT abdomen soft tissue abnormality over the face identified. Cervical spine: Straightening of the normal cervical lordosis. Atlantooccipital relationships are normal. No traumatic malalignment of the cervical spine. No cervical spine fractures. No prevertebral soft tissue abnormality. IMPRESSION: No acute intracranial process. No traumatic abnormality of the face. No cervical spine fractures. Thank you for letting us participate in the care of this patient. If you are a health care provider and have any questions regarding this report, please contact the number below. For patients who have questions please contact the health multi care technician that requested your imaging first. CHEST PORTABLE OR 1V - Co mpleted: 03/24/2024 14:45 LOINC: [facility] [place], [place] [address] RADIOLOGY SUPERVISOR CABINETMAKER REPORT Patient Name: JULES GARCIA MRN: Sex: : Age: [id number] F 1945 79 Account: Accession: Admit: StayType: [id number] 03/24/2024 E Ordered: Order ID: Submitted: Ordering Provider: 03/24/2024 14:24 [id number] JOSE HEATH Completed: Technologist: Resulted: 03/24/2024 14:24 CML 03/24/2024 15:47 EXAMINATION: XR CHEST PORTABLE OR 1V CLINICAL HISTORY: Reason for Chest: LOC Add'l Info: TECHNIQUE: AP view of the chest , one image COMPARISON: None FINDINGS: No focal airspace opacities. No pleural effusion or pneumothorax. The cardiac, mediastinal, and hilar contours are normal. No acute osseous findings. IMPRESSION: No acute cardiopulmonary process. Thank you for letting us participate in the care of this patient. If you are a health care provider and have any questions regarding this report, please contact the number below. For patients who have questions please contact the health multi care technician that requested your imaging first. Social History Type Status Start Date End Date Code Code Syst em Smoking History Never smoker (Never Smoked) 666771084 SNOMED CT Sex Female Vital Signs Vital Sign Value Unit Madison Value Madison Unit Date/Time Recent/Initial? Code Code System Body Mass Index 30.42 kg/m2 03/24/2024 20:50 Most Recent 48616 -5 LOINC Body Mass Index 33.82 kg/m2 03/24/2024 14:10 Initial 08056 -5 LOINC Systolic Blood Pressure 90 mm[Hg] 03/25/2024 07:23 Most Recent 8480- 6 LOINC Diastolic Blood Pressure 72 mm[Hg] 03/25/2024 07:23 Most Recent 8462- 4 LOINC Systolic Blood Pressure 148 mm[Hg] 03/24/2024 14:10 Initial 8480- 6 LOINC Diastolic Blood Pressure 78 mm[Hg] 03/24/2024 14:10 Initial 8462- 4 LOINC Body Surface Area 1.77 m2 03/24/2024 20:50 Most Recent 3140- 1 LOINC Body Surface Area 1.87 m2 03/24/2024 14:10 Initial 3140- 1 LOINC Height 154.940 0 cm 61.00 in 03/24/2024 20:50 Most Recent 8302- 2 LOINC Height 154.940 0 cm 61.00 in 03/24/2024 14:10 Initial 8302- 2 LOINC O2 Saturation 96 % 2023 07:23 Most Recent 64330 -5 LOINC O2 Saturation 95 % 2023 14:10 Initial 22037 -5 LOINC Pulse 70.0 /min 03/25/2024 07:23 Most Recent 8867- 4 LOINC Pulse 86.0 /min 03/24/2024 14:10 Initial 8867- 4 LOINC Respiration 20 /min 03/25/20 24 07:23 Most Recent 9279- 1 LOINC Respiration 18 /min 03/24/20 24 14:10 Initial 9279- 1 LOINC Temperature 36.6 Suzi 97.9 F 03/25/20 24 07:23 Most Recent 8310- 5 LOINC Temperature 36.4 Suzi 97.5 F 03/24/20 14:10 Initial 8310- 5 LOINC Weight 72.71 kg 160.30 lbs 03/25/2024 06:49 Most Recent 70216 -7 LOINC Weight 81.19 kg 179.00 lbs 03/24/2024 14:10 Initial 86485 -7 LOINC Medications Medication Start Date End Date Route Frequency Dose Code Code System Medication Instructions Home Meds Atorvastatin Calcium 40MG Oral Tablet 03/25/2024 Unknown ORAL DAILY 40 MILLIGRAMS 392444 RxNorm TAKE 40 MILLIGRAMS ORAL DAILY FLUoxetine 10MG Oral Capsule 03/25/2024 Unknown ORAL DAILY 10 MILLIGRAMS 666896 RxNorm TAKE 10 MILLIGRAMS ORAL DAILY metFORMIN HCl 1000MG Oral Tablet 03/25/2024 Unknown ORAL DAILY 1000 MILLIGRAMS 372374 RxNorm TAKE 1000 MILLIGRAMS ORAL DAILY Clindamycin 300MG Oral Capsule 03/25/2024 Unknown ORAL FOUR TIMES A DAY 1 CAPSULE 689642 RxNorm TAKE 1 CAPSULE ORAL FOUR TIMES [...] Status Code Code System DIABETES 2 active 09350374 SNOMED-CT SYNCOPE active 247941151 SNOMED-CT DENTAL INFECTION active 145609128 SNO MED-CT HIGH CHOLESTEROL 03/24/2024 resolved 15142119 SN OMED-CT DEPRESSION 03/24/2024 resolved 12387114 SNOMED-C T COMPRESSION FRACTURE 03/24/2024 resolved 06214308 9 SNOMED-CT Allergies and Adverse Reactions Allergy Substance Reaction Severity Start Date Concern Status Co de Code System No Known Drug Allergies Active 280000397 SNOMED-CT Plan of Treatment No Data Found Encounters Encounter Diagnosis Start Date Code Code Sys tem Periapical abscess without sinus 03/24/2024 SNOMED-CT Personal Care Team Section Performer Name Performer Role Active Date Inactive Da te SANFORD Tyler PCP - Primary care physician 2024-03-[address] [facility] 03/25/2024 11:07 Patient Name: JULES GARCIA Date of Service: 03/25/2024 11:02 Discharge Date: 03/25/2024 Admission Diagnosis: Syncope Discharge Diagnosis: Dental Infection : Primary Care Physician: SANFORD Tyler Recommendations: Finish taking your course of antibiotics. He can start taking this tonight March 25. Follow-up with a dentist Follow-up with your PCP Discharge Medications: Discharge Meds List Atorvastatin Calcium 40MG Oral Tablet, TAKE 40 MILLIGRAMS ORAL DAILY Clindamycin 300MG Oral Capsule, TAKE 1 CAPSULE ORAL FOUR TIMES A DAY STARTING TONIGHT 03/25 FLUoxetine 10MG Oral Capsule, TAKE 10 MILLIGRAMS ORAL DAILY metFORMIN HCl 1000MG Oral Tablet, TAKE 1000 MILLIGRAMS ORAL DAILY History of Present Illness Jules Garcia is an 79-year-old female with a medical history significant for type 2 diabetes, hyperlipidemia, depression, history of compression fracture, presenting today with right maxillary pain and syncope. 2 days ago the patient had onset of right maxillary pain and swelling. This morning she notes that she felt something come loose and spit out some ford blood-tinged drainage. She notes that she was feeling tired and groggy and took her temperature last evening which was 90 9.9F. This morning she was feeling a bit lightheaded with a frontal headache which is often the case in the mornings for her. She continued to feel off during the day. She was out grocery shopping with her this afternoon and was standing at the [employer] register when she briefly lost consciousness, falling and hitting the back of her head. She came to within seconds and felt nauseous, vomiting once. EMS was called and she was brought to the emergency department for evaluation and treatment. She denies chest pain, shortness of breath, abdominal pain, cough, rhinorrhea, changes in bowel or bladder habit. In the emergency department the patient is afebrile, heart rate in the 80s, blood pressure stable, O2 sats in the 90s on room air. CBC and BMP are reassuring, significant for WBC 10 with 81% neutrophils. UA with no signs of infection. Chest x-ray with no acute cardiopulmonary process. CT head, C-spine, facial/sinus without contrast with no acute intracranial process, no cervical fractures, no traumatic abnormality of the face. In the emergency department the patient was given clindamycin 900 mg IV. Patient was referred to the hospitalist service for further evaluation and treatment. Hospital Course Syncope Etiology, possibly related to acute infection. Troponin <0.012 with repeat at three hours also <0.012 Monitored on telemetry overnight with no events Dental infection Clindamycin IV 900mg Q8 hours --> PO 300 QID Patient does not have dental care in the community (recently moved) but will follow-up with a dentist Labs last 72 hours Test Results Units Reference Range Collected GLUCOSE 135 H mg/dL L=70 H=116 03/25/2024 06:51 BUN 13 mg/dL L=7 H=17 03/25/2024 06:51 CREATININE 0.81 mg/dL L=0.52 H=1.04 03/25/2024 06:51 SODIUM SERUM 137 mmol/L L=136 H=145 03/25/2024 06:51 POTASSIUM SERUM 4.2 mmol/L L=3.4 H=5.2 03/25/2024 06:51 CHLORIDE SERUM 97 L mmol/L L=98 H=107 03/25/2024 06:51 CARBON DIOXIDE (CO2) 31 H mmol/L L=22 H=30 03/25/2024 06:51 ANION GAP 8.7 mmol/L 03/25/2024 06:51 CALCIUM SERUM 9.4 mg/dL L=8.4 H=10.2 03/25/2024 06:51 WBC 7.26 th/cmm L=5.00 H=10.00 03/25/2024 06:51 HEMOGLOBIN 11.6 L gm/dL L=12.0 H=16.0 03/25/2024 06:51 HEMATOCRIT 37 % L=37 H=47 03/25/2024 06:51 PLATELET COUNT 318 th/cmm L=150 H=450 03/25/2024 06:51 TROPONIN-I <0.012 ng/mL L=0.000 H=0.034 03/24/2024 17:36 Specimen seq. 3 HOUR 03/24/2024 17:36 COLLECTION MODE: CLEAN CATCH 03/24/2024 15:44 Color YELLOW yellow 03/24/2024 15:44 Appearance CLEAR clear 03/24/2024 15:44 Glucose urine 250 A negative mg/dl 03/24/2024 15:44 Bilirubin NEGATIVE negative 03/24/2024 15:44 Ketones TRACE A negative mg/dl 03/24/2024 15:44 Spec gravity 1.025 1.003 - 1.030 03/24/2024 15:44 pH urine 5.5 5.0 - 7.0 03/24/2024 15:44 Protein TRACE negative mg/dl 03/24/2024 15:44 Urobilinogen 1.0 A 03/24/2024 15:44 Nitrite NEGATIVE negative 03/24/2024 15:44 Blood NEGATIVE negative 03/24/2024 15:44 Leukocytes TRACE A negative 03/24/2024 15:44 WBCs 0-5 0-5 / hpf 03/24/2024 15:44 Epith cells 0-5 0-5 / hpf 03/24/2024 15:44 Cell types 03/24/2024 15:44 Crystals none none 03/24/2024 15:44 Bacteria minimal none 03/24/2024 15:44 Mucus none none 03/24/2024 15:44 Casts none none /lpf 03/24/2024 15:44 Other 03/24/2024 15:44 CULT BLOOD CULTURE 03/24/2024 15:33 CULT BLOOD CULTURE 03/24/2024 14:55 LACTIC ACID 1.7 mmol/L L=0.7 H=2.1 03/24/2024 14:55 WBC 10.56 H th/cmm L=5.00 H=10.00 03/24/2024 14:28 HEMOGLOBIN 12.7 gm/dL L=12.0 H=16.0 03/24/2024 14:28 HEMATOCRIT 40 % L=37 H=47 03/24/2024 14:28 PLATELET COUNT 317 th/cmm L=150 H=450 03/24/2024 14:28 GLUCOSE 194 H mg/dL L=70 H=116 03/24/2024 14:28 BUN 11 mg/dL L=7 H=17 03/24/2024 14:28 CREATININE 0.83 mg/dL L=0.52 H=1.04 03/24/2024 14:28 SODIUM SERUM 135 L mmol/L L=136 H=145 03/24/2024 14:28 POTASSIUM SERUM 4.0 mmol/L L=3.4 H=5.2 03/24/2024 14:28 CHLORIDE SERUM 97 L mmol/L L=98 H=107 03/24/2024 14:28 CARBON DIOXIDE (CO2) 29 mmol/L L=22 H=30 03/24/2024 14:28 ANION GAP 9.8 mmol/L 03/24/2024 14:28 CALCIUM SERUM 9.5 mg/dL L=8.4 H=10.2 03/24/2024 14:28 BILIRUBIN TOTAL 1.7 H mg/dL L=0.2 H=1.3 03/24/2024 14:28 ALK. PHOS. 113 U/L L=38 H=126 03/24/2024 14:28 SGOT (AST) 23 U/L L=14 H=36 03/24/2024 14:28 SGPT (ALT) 18 U/L L=4 H=35 03/24/2024 14:28 TOTAL PROTEIN 7.9 gm/dL L=6.0 H=8.0 03/24/2024 14:28 ALBUMIN 4.5 gm/dL L=3.4 H=5.0 03/24/2024 14:28 LIPASE. 77 U/L L=23 H=300 03/24/2024 14:28 TROPONIN-I <0.012 ng/mL L=0.000 H=0.034 03/24/2024 14:28 Specimen seq. RANDOM 03/24/2024 14:28 Pertinent Imaging: CT HEAD/C-SPINE/FACIA/SINUS WO CONTRAST 03/24/24: Head CT: Small amount of soft tissue induration over the RIGHT occipital calvarium. No underlying calvarial fractures. No intracranial hemorrhage. No mass or mass effect. No extra-axial collection. Mild diffuse prominence of subarachnoid spaces and occipital horns of the lateral ventricles likely represents age-related parenchymal volume loss. No territorial abnormalities of ford-white matter differentiation. Mastoid air cells are clear. CT face: No fractures of the facial bones. Orbital contents are grossly normal. Globes are intact. Mucosal thickening ethmoid air cells and circumferential mucosal thickening in the RIGHT maxillary sinus. Sphenoid sinuses clear. No acute traumatic abnormality of the mandible. No significant CT abdomen soft tissue abnormality over the face identified. Cervical spine: Straightening of the normal cervical lordosis. Atlantooccipital relationships are normal. No traumatic malalignment of the cervical spine. No cervical spine fractures. No prevertebral soft tissue abnormality. IMPRESSION: No acute intracranial process. No traumatic abnormality of the face. No cervical spine fractures. History and Physical Notes [facility] 03/30/2024 23:57 All Demographics Patient Name Age Sex Visit Number Admission Date/Time Attending Physician Date of Service Room and Bed Emergency Contact JULES GARCIA 1945 79 years Female [id number] 03/24/2024 18:06 FRANCIS MCCRARY 03/24/2024 [id number] ASHLEY JOHNSTON - [id number] ASHLEY JOHNSTON - [id number] 03/24/2024 20:22 Admission Date: 03/24/2024 Reason for Admission: SYNCOPE Code Status: Full Code Attending Physician: Francis Mccrary MD Primary Care Physician: SANFORD Tyler Referring Physician: Jose Marcos MD History of Present Illness Chief Complaint: SYNCOPE Jules Garcia is an 79-year-old female with a medical history significant for type 2 diabetes, hyperlipidemia, depression, history of compression fracture, presenting today with right maxillary pain and syncope. 2 days ago the patient had onset of right maxillary pain and swelling. This morning she notes that she felt something come loose and spit out some ford blood-tinged drainage. She notes that she was feeling tired and groggy and took her temperature last evening which was 90 9.9F. This morning she was feeling a bit lightheaded with a frontal headache which is often the case in the mornings for her. She continued to feel off during the day. She was out grocery shopping with her this afternoon and was standing at the [employer] register when she briefly lost consciousness, falling and hitting the back of her head. She came to within seconds and felt nauseous, vomiting once. EMS was called and she was brought to the emergency department for evaluation and treatment. She denies chest pain, shortness of breath, abdominal pain, cough, rhinorrhea, changes in bowel or bladder habit. In the emergency department the patient is afebrile, heart rate in the 80s, blood pressure stable, O2 sats in the 90s on room air. CBC and BMP are reassuring, significant for WBC 10 with 81% neutrophils. UA with no signs of infection. Chest x-ray with no acute cardiopulmonary process. CT head, C-spine, facial/sinus without contrast with no acute intracranial process, no cervical fractures, no traumatic abnormality of the face. In the emergency department the patient was given clindamycin 900 mg IV. Patient was referred to the hospitalist service for further evaluation and treatment. Ordered & Completed Meds Table Ordered Medication Start Date/Time Dosage Route Frequency Status CLINDAMYCIN IVPB PREMIX: 900MG/50ML 03/24/2024 16:21 100 ml/hr IV PIGGYBACK X1 completed ACETAMINOPHEN INJ IVPB: 1000MG/100ML 03/24/2024 18:06 400 ml/hr IV PIGGYBACK PRN Q6H active DILTIAZEM TABLET: 30MG 03/24/2024 18:21 30 MG ORAL X1 completed ONDANSETRON INJ SDV: 4MG/2ML 03/24/2024 18:06 4 MG IV PUSH PRN Q4H active Past Medical/Surgical/Family/Social History Medical History: All Problems Problem ICD Code Onset Date Resolved Date Age Status Comment Diabetes 2 E11.9 Active High cholesterol E78.00 03/24/2024 Historic Syncope R55 Active Dental infection K04.7 Active Depression F32.A 03/24/2024 Historic Compression fracture T14.8XXS 03/24/2024 Historic Surgical History: No surgeries Family History: FH of type 2 diabetes, BROTHER FH of coronary artery disease, FATHER from [place] at 61 Social History: Lives at home with her . Never smoker. Denies alcohol or recreational drug use. Allergy List No Known Drug Allergies, Medication Current Medications: Home Meds: Dose and Freq Medication Dosage Frequency FLUoxetine 10MG Oral Capsule 10 MILLIGRAMS DAILY Atorvastatin Calcium 40MG Oral Tablet 40 MILLIGRAMS DAILY metFORMIN HCl 1000MG Oral Tablet 1000 MILLIGRAMS DAILY REVIEW OF SYSTEMS: CONSTITUTIONAL: Denies fever EYES: Denies changes in vision ENT: Endorses right maxillary pain RESPIRATORY: Denies shortness of breath HEART: Denies palpitations or chest pain ABDOMEN: Endorses one episode of vomiting. GENITOURINARY : Denies dysuria EXTREMITIES: Denies pain or edema SKIN: Denies rash or abrasion. NEURO: Endorses dizziness, syncope PHYSICAL EXAM Most Recent Vital Signs BP (mm/Hg) BP Position/Site MAP (mm/Hg) Heart Rate Resp Temp (C) Temp (F) SPO2% O2 Device Pain Score Height (cm) Height (in) Weight (kg) Weight (lbs/ozs) 126/45 Lying/Right Arm 72 76 18 36.4 Temporal 97.5 Temporal 92 % Room Air 21% 0 154.9 cm 61 in 81.19 kg 179.0 GENERAL: Normal appearing elderly female. In no apparent distress. SKIN: Intact, no rashes. No jaundice. [place] and warm with good turgor. HEENT: Right maxillary/gingival erythema and edema, no obvious abscess. Mild tenderness to palpation. Edema also noted over this area on the right cheek. Normocephalic, atraumatic. Pupils are equal, round and reactive to light. Extraocular muscles are grossly intact. Sclerae are without injection or icterus. Mucous membranes pink and moist. NECK: Supple, without lesions, or adenopathy. No JVD appreciated. Trachea midline. CHEST/LUNGS: Clear to auscultation bilaterally. No rales, rhonchi, or wheezes are appreciated. HEART: Regular rate and rhythm. No murmurs, rubs, clicks or gallops. ABDOMEN: Soft, non-tender and non-distended MUSCULOSKELETAL: No misalignment, asymmetry, decreased range of motion, or instability appreciated. EXTREMITIES: No peripheral edema appreciated. No amputations, deformities, or signs of trauma. NEUROLOGIC: The patient is oriented x3. Muscle strength grossly intact in the upper and lower extremities bilaterally. Sensation to pain, touch, and proprioception are grossly normal. PSYCHIATRIC: Mood and affect are appropriate. Memory is intact with good short- and long-term memory recall. Pre-Admission Studies: Lab Results: Last Week Test Results Units Reference Range Collected TROPONIN-I <0.012 ng/mL L=0.000 H=0.034 03/24/2024 17:36 Specimen seq. 3 HOUR 03/24/2024 17:36 COLLECTION MODE: CLEAN CATCH 03/24/2024 15:44 Color YELLOW yellow 03/24/2024 15:44 Appearance CLEAR clear 03/24/2024 15:44 Glucose urine 250 A negative mg/dl 03/24/2024 15:44 Bilirubin NEGATIVE negative 03/24/2024 15:44 Ketones TRACE A negative mg/dl 03/24/2024 15:44 Spec gravity 1.025 1.003 - 1.030 03/24/2024 15:44 pH urine 5.5 5.0 - 7.0 03/24/2024 15:44 Protein TRACE negative mg/dl 03/24/2024 15:44 Urobilinogen 1.0 A 03/24/2024 15:44 Nitrite NEGATIVE negative 03/24/2024 15:44 Blood NEGATIVE negative 03/24/2024 15:44 Leukocytes TRACE A negative 03/24/2024 15:44 WBCs 0-5 0-5 / hpf 03/24/2024 15:44 RBCs 0-5 0-5 / hpf 03/24/2024 15:44 Epith cells 0-5 0-5 / hpf 03/24/2024 15:44 Cell types 03/24/2024 15:44 Crystals none none 03/24/2024 15:44 Bacteria minimal none 03/24/2024 15:44 Mucus none none 03/24/2024 15:44 Casts none none /lpf 03/24/2024 15:44 Other 03/24/2024 15:44 CULT BLOOD CULTURE 03/24/2024 15:33 CULT BLOOD CULTURE 03/24/2024 14:55 LACTIC ACID 1.7 mmol/L L=0.7 H=2.1 03/24/2024 14:55 WBC 10.56 H th/cmm L=5.00 H=10.00 03/24/2024 14:28 NEUT % 81.9 H % L=40.0 H=80.0 03/24/2024 14:28 LYMPH % 11.2 % L=10.0 H=50.0 03/24/2024 14:28 MONO % 6.0 % L=2.0 H=12.0 03/24/2024 14:28 EOS % 0.2 % L=0.0 H=8.0 03/24/2024 14:28 BASO % 0.3 % L=0.0 H=3.0 03/24/2024 14:28 IG % 0.4 % L=0.0 H=1.1 03/24/2024 14:28 NRBC % 0.0 % L=0.0 H=0.0 03/24/2024 14:28 NEUT abs count 8.7 H th/cmm L=1.6 H=8.4 03/24/2024 14:28 LYMPH abs count 1.2 L th/cmm L=1.5 H=4.0 03/24/2024 14:28 MONO abs count 0.6 th/cmm L=0.2 H=1.0 03/24/2024 14:28 EOS abs count 0.0 th/cmm L=0.0 H=0.5 03/24/2024 14:28 BASO abs count 0.0 th/cmm L=0.0 H=0.2 03/24/2024 14:28 IG abs count 0.0 th/cmm L=0.0 H=0.1 03/24/2024 14:28 NRBC abs count 0.0 mil/cmm L=0.0 H=0.0 03/24/2024 14:28 RBC 4.39 mil/cmm L=3.90 H=5.40 03/24/2024 14:28 HEMOGLOBIN 12.7 gm/dL L=12.0 H=16.0 03/24/2024 14:28 HEMATOCRIT 40 % L=37 H=47 03/24/2024 14:28 MCV 90 fL L=82 H=92 03/24/2024 14:28 MCH 28.9 pg L=27.0 H=31.0 03/24/2024 14:28 MCHC 32.1 % L=32.0 H=36.0 03/24/2024 14:28 RDW-SD 41.3 fL L=39.0 H=49.0 03/24/2024 14:28 PLATELET COUNT 317 th/cmm L=150 H=450 03/24/2024 14:28 GLUCOSE 194 H mg/dL L=70 H=116 03/24/2024 14:28 BUN 11 mg/dL L=7 H=17 03/24/2024 14:28 CREATININE 0.83 mg/dL L=0.52 H=1.04 03/24/2024 14:28 SODIUM SERUM 135 L mmol/L L=136 H=145 03/24/2024 14:28 POTASSIUM SERUM 4.0 mmol/L L=3.4 H=5.2 03/24/2024 14:28 CHLORIDE SERUM 97 L mmol/L L=98 H=107 03/24/2024 14:28 CARBON DIOXIDE (CO2) 29 mmol/L L=22 H=30 03/24/2024 14:28 ANION GAP 9.8 mmol/L 03/24/2024 14:28 CALCIUM SERUM 9.5 mg/dL L=8.4 H=10.2 03/24/2024 14:28 BILIRUBIN TOTAL 1.7 H mg/dL L=0.2 H=1.3 03/24/2024 14:28 ALK. PHOS. 113 U/L L=38 H=126 03/24/2024 14:28 SGOT (AST) 23 U/L L=14 H=36 03/24/2024 14:28 SGPT (ALT) 18 U/L L=4 H=35 03/24/2024 14:28 TOTAL PROTEIN 7.9 gm/dL L=6.0 H=8.0 03/24/2024 14:28 ALBUMIN 4.5 gm/dL L=3.4 H=5.0 03/24/2024 14:28 AGE 79 years 03/24/2024 14:28 eGFR (non-Afr.Amer.) 66 mL/min 03/24/2024 14:28 eGFR (Afr-Monegasque) 80 mL/min 03/24/2024 14:28 LIPASE. 77 U/L L=23 H=300 03/24/2024 14:28 TROPONIN-I <0.012 ng/mL L=0.000 H=0.034 03/24/2024 14:28 Specimen seq. RANDOM 03/24/2024 14:28 Imaging: XR CHEST PORTABLE 03/24/24 No focal airspace opacities. No pleural effusion or pneumothorax. The cardiac, mediastinal, and hilar contours are normal. No acute osseous findings. IMPRESSION: No acute cardiopulmonary process. CT HEAD/C-SPINE/FACIA/SINUS WO CONTRAST 03/24/24: Head CT: Small amount of soft tissue induration over the RIGHT occipital calvarium. No underlying calvarial fractures. No intracranial hemorrhage. No mass or mass effect. No extra-axial collection. Mild diffuse prominence of subarachnoid spaces and occipital horns of the lateral ventricles likely represents age-related parenchymal volume loss. No territorial abnormalities of ford-white matter differentiation. Mastoid air cells are clear. CT face: No fractures of the facial bones. Orbital contents are grossly normal. Globes are intact. Mucosal thickening ethmoid air cells and circumferential mucosal thickening in the RIGHT maxillary sinus. Sphenoid sinuses clear. No acute traumatic abnormality of the mandible. No significant CT abdomen soft tissue abnormality over the face identified. Cervical spine: Straightening of the normal cervical lordosis. Atlantooccipital relationships are normal. No traumatic malalignment of the cervical spine. No cervical spine fractures. No prevertebral soft tissue abnormality. IMPRESSION: No acute intracranial process. No traumatic abnormality of the face. No cervical spine fractures. Assessment/Plan Problem List Diabetes 2 Syncope Dental infection Syncope ?Etiology, possibly related to acute infection. Troponin <0.012 with repeat at three hours also <0.012 Monitor on telemetry overnight. Dental infection Clindamycin 900mg Q8 hours Patient does not have dental care in the community (recently moved) Type 2 diabetes Continue outpatient metformin 1000mg daily Continue home medications as prescribed with exceptions and additions noted above. Estimated length of stay less than two midnights for treatment of syncope, dental infection Ordered Meds List ACETAMINOPHEN INJ IVPB: 1000MG/100ML, PRN Q6H ONDANSETRON INJ SDV: 4MG/2ML, PRN Q4H
--- OUTSIDE RECORDS SUMMARY | 2024-04-20 13:10 | XMS_ITS | Encounter Summary ---
Author Organization [facility] Address [address] [place] [address] Care Team Providers Care Patch Washer Name Role Phone Unavailable Primary Care Provider Unavailabl e Encounter Details Date Type Department Care Team (Late st Contact Info) Description 09/18/2009 13:31 EDT - 09/18/2009 13:32 EDT Hospital Encounter [facility] - Other [address] [place] [address] Sandra Galarza ARNP [address] [place] [address] Discharge Disposition: Home or Self Care Social [...]
--- OUTSIDE RECORDS SUMMARY | 2024-04-20 13:10 | XMS_ITS | Encounter Summary ---
Author Organization [facility] Address [address] [place] [address] Care Team Providers Care Forest Logistics Manager Name Role Phone Unavailable Primary Care Provider Unavailabl e Encounter Details Date Type Department Care Team (Late st Contact Info) Description 09/18/2009 Results Only [facility] Non-Invasive Cardiology - [facility] [address] [place] [address] Sandra Galarza, [place] [address] [place] [address] Social History Tobacco Use Types Packs/Day Years [...] ? JULES GARCIA ? Accession #: ? [id number] ? : ? 1945 (Age: 64) ??F [...] 11:40 ? End of Report ? [facility] 09/18/2009 09/20/2009 us Sandra CALABRESE PATHOLOGY ORDERABLES Final Res ult [facility] [address] [place] [address] documented in this encounter Visit Diagnoses Not on filedocumented in this encounter
--- OUTSIDE RECORDS SUMMARY | 2024-04-20 13:10 | XMS_ITS | Encounter Summary ---
Author Organization [facility] Address [address] [place] [address] Care Team Providers Care Kennel Assistant Name Role Phone Unknown, Provider Primary Care Provider Unava ilable Encounter Details Date Type Department Care Team (Late st Contact Info) Description 07/19/2012 Results Only [facility] Laboratory Services - [facility] [address] [place], [place] [address] Alec Khan MD [address] [facility] [place] [address] Social History Tobacco Use Types [...] ? JULES GARCIA ? Accession #: ? [id number] ? : ? 1945 (Age: 67) ??F [...] SIMONS 07/19/2012 8:59 EDT 07/20/2012 8:59 EDT us Alec Khan MD PATHOLOGY ORDERABLES Final Re sult [facility] [address] [place] [address] documented in this encounter Visit Diagnoses Not on filedocumented in this encounter Care Teams Kennel Assistant Relationship Specialty Start Date End Date Unknown, Provider, PCP - General 09/21/09 07/22/12 documented as of this encounter
--- OUTSIDE RECORDS SUMMARY | 2024-04-20 13:10 | XMS_ITS | Encounter Summary ---
Author Organization [facility] Address [address] [place] [address] Care Team Providers Care Meat Process Worker Name Role Phone Deepika Miller MD Primary Care Provider [phone] Encounter Details Date Type Department Care Team (Late st Contact Info) Description 01/04/2022 Lab Requisition [facility] Pathology & Laboratory Medicine - [facility] [address] [place], [place] [address] Outr Resulting Lab, Provider Social History Tobacco [...] Priority Date/Time Associated Diagnosis Comments ZZCOVID-19 TEST [facility] PCR Today 01/04/2022 10:36 EDT COVID-19 TESTING Routine 01/04/2022 10:3 6 EDT documented in this encounter Results * COVID-19 TEST [facility] PCR (01/04/2022 10:36 EDT) Swab 01/04/2022 10:3 6 EDT 01/05/2022 15:51 EDT us Provider Outr Resulting Lab MICROBIOLOGY - GENER AL ORDERABLES Final Result [facility] [address] [place] [address] * COVID-19 TESTING (01/04/2022 10:36 EDT) COVID-19 rt-PCR Result Negative Negative 01/06/2022 11:53 EDT [facility] Comment: This test has not [...] was performed using the briseida SARS-CoV-2 assay ([employer] on the Briseida 6800 System Performing Lab Briseida [address] [facility] 01/06/2022 11:53 EDT [facility] Swab 01/04/2022 10:3 6 EDT 01/05/2022 15:51 EDT us Provider Outr Resulting Lab MICROBIOLOGY - GENER AL ORDERABLES Final Result Performing Organization Address [facility] Co de Phone Number [facility] [address] [place] [address] documented in this encounter Visit Diagnoses Not on filedocumented in this encounter Care Teams Meat Process Worker Relationship Specialty Start Date End Date Deepika Miller MD [address] [place] [phone] PCP - General 07/23/12 documented as of this encounter
--- OUTSIDE RECORDS SUMMARY | 2024-04-20 13:10 | XMS_ITS | Clinical Summary ---
Author Organization [facility] [place] [address] Care Team Providers Care Hogshead Cooper Name Role Phone Sandra Galarza APRN Primary Care Provider [phone] Social History Tobacco Use Types Packs/Day Years Used Date Smoking Tobacco: Never Assessed Sex and Gender Information Value Date Recorded Sex Assigned at Not on file Gender Identity Not on file Sexual Orientation Not on file Plan of Treatment Health Maintenance Due Date Last Done Comments Hepatitis C Screening 1963 Tetanus/Diphtheria/Pertussis Vaccines (1 - Tdap) 03/04 Pneumoccocal Vaccine: 65+ (1 of 1 - PCV) 1994 Zoster vaccine (1 of 2) 1994 Advance Directive 1999 Bone Density Scan 2009 RSV Vaccine (1 - 1-dose 75+ series) 2019 Covid-19 Vaccine ( - season) 2023 Influenza (Flu) vaccine (1 o f 1 - Influenza standard series) 12/13/2023 Care Teams Hogshead Cooper Relationship Specialty Start Date End Date Sandra Galarza APRN [facility] - General 08/01/10
--- OUTSIDE RECORDS SUMMARY | 2024-04-20 13:10 | XMS_ITS | Encounter Summary ---
Author Organization [facility] Address [address] [place] [address] Care Team Providers Care Rn Physician Office Name Role Phone Deepika Miller MD Primary Care Provider [phone] Encounter Details Date Type Department Care Team (Late st Contact Info) Description 09/17/2021 Lab Requisition [facility] Pathology & Laboratory Medicine - [facility] [address] [place], [place] [id number] Outr Resulting Lab, Provider Social History Tobacco [...] 19 - 88 pg/mL 09/18/2021 10:42 EDT [facility] Blood VENOUS BLOOD / Unknown 09/16/2021 8:25 EDT 09/17/2021 17:19 EDT us Provider Outr Resulting Lab CHEMISTRY & BLOOD GA S ORDERABLES Final Result [facility] [address] [place] [address] * CELIAC DISEASE PANEL (09/16/2021 8:25 EDT) Tissue Transglutaminase Antibody IGA <1.2 <4.0 U/mL 09/18/2021 11:07 EDT [facility] Comment: A negative result may be due to IgA deficiency and does not rule out celiac disease. ? Negative: ??<4.0 U/mL ? Weak Positive: ??4.0 - 10.0 U/mL ? Positive: ??>10.0 U/mL Results were obtained with the doggylootA Lite R h-tTG IgA ALMA assay on the [employer]. IgA 307 85 - 499 mg/dL 09/18/2021 11:07 EDT [facility] Celiac Disease Interpretation Negative Serology. Celiac disease unlikely. Approximately 10% of patients with celiac disease are seronegative. Patients who are already adhering to a gluten-free diet may also be seronegative. If celiac disease is highly clinically suspected, referral to gastroenterology for additional evaluation is recommended. 09/18/2021 11:07 EDT [facility] Blood VENOUS BLOOD / Unknown 09/16/2021 8:25 EDT 09/17/2021 17:19 EDT us Provider Outr Resulting Lab IMMUNOLOGY AND SEROL OGY ORDERABLES Final Result [facility] [address] [place] [address] documented in this encounter Visit Diagnoses Not on filedocumented in this encounter Care Teams Rn Physician Office Relationship Specialty Start Date End Date Deepika Miller MD [address] [place] [phone] PCP - General 07/23/12 documented as of this encounter
[2024-04-20 15:39] LABS: COMMENT (LAB VIEW ONLY) 163.33 mg/dL; Microalb ug/mg Crea 12.3 ug/mg Cr
== END 2024-04-20 13:06 | disposition home or self-care (01) ==
LOC: NCHCN 13:05
PROVIDERS: PCP Family Medicine; Visit Provider Family Medicine
DX: E11.9 Type 2 diabetes mellitus without complications (principal)
CPT/HCPCS: 82043; 82570

== ENCOUNTER 2024-09-30 14:42 | Outpatient (REF) | payer MEDICARE, SELFPAY ==
[2024-09-30 21:03] LABS: HCT 38.6 % (36.0-46.0); MCH 27.8 pg (27.0-33.0); MCHC 31.1 % (32.0-36.0); MCV 89 fL (80-95); MPV 9.2 fL (8.0-11.0); Platelet Count 345 10^3/uL (130-400); RBC 4.32 10^6/uL (3.93-5.22); RDW 12.5 % (11.7-14.6); RDW-SD 41.1 fL; WBC 8.12 10^3/uL (4.4-10.8)
[2024-09-30 21:27] LABS: ALT 18 U/L (14-59); AST 13 U/L (15-37); Albumin 3.5 g/dL (3.4-5.0); Alkaline Phosphatase 111 U/L (46-116); Anion Gap 6.1 mmol/L (3-11); BUN 10 mg/dL (7-18); Bilirubin, Total 0.9 mg/dL (0.2-1.0); CO2 32.9 mmol/L (21.0-32.0); CREATININE 0.9 mg/dL (0.55-1.02); Calcium 9.4 mg/dL (8.5-10.1); Chloride 99 mmol/L (98-107); Estimated GFR 64.63 (mL/min/1.73m2); Glucose 132 mg/dL (74-106); Potassium 4.1 mmol/L (3.5-5.1); Sodium 138 mmol/L (136-145); TSH (W/Ref FT4) 0.89 uIU/mL (0.36-3.74); Total Protein 7.2 g/dL (6.4-8.2)
== END 2024-09-30 14:43 | disposition home or self-care (01) ==
LOC: NCHCN 14:42
PROVIDERS: PCP Family Medicine; Visit Provider Family Medicine
DX: E11.9 Type 2 diabetes mellitus without complications (principal)
CPT/HCPCS: 80053; 85027; 84443

== ENCOUNTER → 2025-04-07 00:02 | Outpatient (CLI) | payer MEDICARE, SELFPAY ==
--- NOTE | 2025-04-07 | DI.CT_ITS ---
Exam(s) CT CHEST/ABD/PEL W EXAM: CT CHEST/ABD/PEL W CLINICAL HISTORY: R63.4 ABN weight loss,nausea,ovaries, uterus and gallbladder all in place. TECHNIQUE: Imaging Protocol: Axial computed tomography images with coronal and sagittal reformatted images were created and reviewed CONTRAST MATERIAL: Intravenous: Omnipaque 350 Contrast volume:100 ml Oral: Yes. Oral contrast was also administered for bowel opacification. COMPARISON: No exams were available for comparison FINDINGS: CHEST: LUNGS: No infiltrates nor pleural effusions. No ominous pulmonary nodules.. MEDIASTINUM: There is no hilar nor mediastinal adenopathy. CARDIAC: Heart size is normal. There is no pericardial effusion.Developmental average right subclavian arteries noted. Thoracic aorta otherwise unremarkable. OSSEOUS: Chronic compression fracture of T12 noted. Also nonacute compression fractures of L2 and L3. No significant canal compromise at these levels. . ABDOMEN: There is no ascites. LIVER: There are no focal hepatic lesions nor dilatation of intrahepatic ducts. No evidence of abscess in the liver. GALLBLADDER/BILIARY: No obvious gallbladder pathology. CBD is not dilated. PANCREAS: No evidence of pancreatic mass nor dilatation of the pancreatic duct. SPLEEN: Spleen is not enlarged. There are no intrasplenic lesions. Splenic and portal veins are patent. ADRENALS: Right adrenal gland unremarkable. There is a nodule in left adrenal gland measuring approximately 3.6 by 1.4 cm. KIDNEYS: Left kidney unremarkable. There is a benign small cyst in the posterior cortex of the right kidney measuring 8 mm. This does not require further workup.. ABDOMINAL AORTA: The abdominal aorta is atherosclerotic but not enlarged. There is also no aneurysmal dilatation of the iliac arteries. LYMPH NODES: There is no retroperitoneal nor paraaortic adenopathy. ABDOMINAL WALL: Small fat only containing midline umbilical hernia. GI: No evidence of small-bowel obstruction. There is abundant fecal material in the colon. There is sigmoid diverticulosis. There is also a large abscess the inferior wall of the sigmoid immediately above the bladder, this abscess measuring 6 cm wide by 4.6 cm craniocaudal by 4 cm AP. There is fat stranding around this region. No free air and no gas within the adjacent urinary bladder to suggest fistulous communication. PELVIS: LYMPH NODES: There is no intrapelvic nor inguinal adenopathy. GI: No evidence of appendicitis.As above. Large sigmoid associated abscess most probably related to subacute diverticulitis of the sigmoid. There appears to be extensive sigmoid diverticulosis. URINARY BLADDER: Some stranding around the bladder which is most probably related to the sigmoid abnormality. There is no gas in the urinary bladder lumen. REPRODUCTIVE: Retroverted uterus. No ovarian masses. No free fluid. OSSEOUS: No significant osseous lesions. IMPRESSION: 1. The main finding here is a large sigmoid associated abscess in the pelvis measuring approximately 6 x 4.6 x 4 cm, this in an area of extensive diverticulosis. This is most probably an abscess related to subacute diverticulitis. 2. There is no evidence of gas in the portal venous system nor intrahepatic abscess related to this pelvic finding and there is no gas within the adjacent urinary bladder lumen to suggest fistulous communication. 3. There is a 3.6 x 1.4 cm nodule in the left adrenal gland. 4. 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 No other significant findings in the chest. Findings called to practice covering physician Dr. Joshi 04/07/2025 at 5:02 p.m. RADIATION DOSE DELIVERED: 362.67mGy.cm Total DLP DATA REPOSITORY: All CT scans at this facility are submitted to the National Radiology Data Registry (NRDR) Dose Index Registry (DIR) with the [employer] (ACR). RADIATION OPTIMIZATION: All CT scans at this facility use at least one of these dose optimization techniques: automated exposure control; mA and/or kV adjustment per patient size (includes targeted exams where dose is matched to clinical indication); or iterative reconstruction.
[2025-04-07] MEDS: Barium Sulfate 2% W/V-Creamy Vanilla Smoothie 450 ML BTL PO (07:27)
[2025-04-07] MEDS: Barium Sulfate 2% W/V-Berry Smoothie 450 ML BTL PO (07:27)
[2025-04-07] MEDS: Omnipaque 350 MG/ML 500 ML BTL-Imaging package IJ (09:39)
[2025-04-07] MEDS: Normal Saline Flush 10 ML SYR IVP (09:39)
[2025-04-07] MEDS: Normal Saline - Diluent 50 ML VIAL IJ (09:39)
== END ==
PROVIDERS: PCP Family Medicine; Visit Provider Family Medicine
DX: Z01.818 Encounter for other preprocedural examination (principal); R63.4 Abnormal weight loss
CPT/HCPCS: 74177; 71260; 82565

== ENCOUNTER 2025-04-07 18:53 | Inpatient (IN) | payer MEDICARE, SELFPAY ==
[2025-04-07 19:02] VITALS: BP 126/75; PULSE 85; RESP 18; TEMP 36.4; O2SAT 96
--- NOTE | 2025-04-07 19:37 | W.ED.GENAD ---
Discharge Plan Disposition Patient Disposition: Admit to [facility] Condition: Stable Discharge Details Clinical Impression: Abscess of sigmoid colon due to diverticulitis Primary Care Provider: Deepika Miller ED Provider: Cici Mcgregor Home Meds and New Rx's Prescriptions: No Action atorvastatin [Lipitor] 20 MG tablet 20 mg PO DAILY metformin 500 MG tablet extended release 24hr 500 mg PO BID VITAMIN B 12 100 mg DAILY VITAMIN D 3 DAILY omeprazole magnesium [Prilosec OTC] 20 MG tablet,delayed release (DR/EC) 20 mg PO PRN PRN fluoxetine 10 MG capsule 10 mg PO DAILY HPI General Mode of arrival: ambulatory. Date/Time Provider Initiated Documentation: 04/07/25 18:55. Limitations to Documentation: no limitations. Information obtained by: patient, RN notes reviewed and old records reviewed. HPI Narrative: 80-year-old female presents to the ER after having a CT chest abdomen pelvis earlier today from an outpatient order that showed a abdominal abscess. The CT shows a sigmoid abscess in the pelvis measuring approximately 6 x 4.6 x 4 cm with extensive diverticulosis. Patient states that she does not currently have any abdominal pain however approximately 3 weeks ago she did have an episode of vomiting. She does report increased flatulence. Increased gas. Denies any fever or chills or diarrhea she does report some constipation she can go a week without having a bowel movement. PMHX includes DM type 2, Hyperlipidemia, Hiatal hernia, Depression. Related Data Home Medications ?Medication ?Instructions ?Recorded ?Confirmed Vitamin B 12 100 mg DAILY 07/19/12 10/20/14 Vitamin D 3 DAILY 07/19/12 10/20/14 atorvastatin 20 mg tablet (Lipitor) 20 mg PO DAILY 07/19/12 04/07/25 metformin 500 mg tablet,extended 500 mg PO BID 07/19/12 04/07/25 release 24hr (osmotic) fluoxetine 10 mg capsule 10 mg PO DAILY 10/20/14 04/07/25 omeprazole magnesium 20 mg 20 mg PO PRN PRN 10/20/14 04/07/25 tablet,delayed release (Prilosec OTC) Allergies Allergy/AdvReac Type Severity Reaction Status Date / Time No Known Allergies Allergy Unverified 04/07/25 19:06 General Stated Complaint: Abd Prob AMITA: 3 Review of Systems All systems reviewed & are unremarkable except as noted in HPI and below Gastrointestinal Gastrointestinal: Reports as per HPI, Reports constipation and Reports excessive flatus Exam Narrative Exam Narrative: Constitutional: Alert and oriented x3. Appears stated age. Normal body habitus. Head: Normocephalic, no trauma. Eyes: Pupils PERRL, Red reflex noted, EOM's intact. Eyelids symmetrical without lesions, discharge, or swelling. ENT: Bilateral TM's WNL, External ear normal to inspection, no mastoid TTP, swelling, or erythema, Nasal turbinates WNL, no nasal discharge. Normal dentition, Posterior pharynx WNL, no exudate. Chest: RRR, Normal S1, S2, distal pulses intact. Resp: Lungs clear to auscultation bilaterally, no wheezes, rales, or rhonchi. Abdomen: Soft, non-distended, Normoactive bowel sounds all 4 quads. Non-tender to palpation Musculoskeletal: Normal gait, Moves all 4 extremities without difficulty. Skin: No suspicious rashes or lesions. Capillary refill less than 2 sec. Neurologic: Cranial nerves II-XII intact. Alert and oriented x 3. Motor: No deficits noted. Sensory: Intact bilaterally all 4 extremities. Hematologic/Lymphatic: No ecchymosis, no lymphadenopathy. Course Vital Signs Vital signs: Vital Signs Temperature 36.4 C L 04/07/25 19:02 Pulse 85 04/07/25 19:02 Respiratory Rate 18 04/07/25 19:02 Blood Pressure 126/75 04/07/25 19:02 Pulse Oximetry 96 04/07/25 19:02 Temperature 36.4 C L 04/07/25 19:02 Temperature Source Oral 04/07/25 19:02 Pulse 85 04/07/25 19:02 Respiratory Rate 18 04/07/25 19:02 Blood Pressure 126/75 04/07/25 19:02 Pulse Oximetry 96 04/07/25 19:02 Oxygen Delivery Method Room Air 04/07/25 19:02 Oxygen Flow Rate 0 04/07/25 19:02 Pain Level 0 04/07/25 19:02 Medical Decision Making 80-year-old female presents to the ER after having a CT chest abdomen pelvis earlier today from an outpatient order that showed a abdominal abscess. The CT shows a sigmoid abscess in the pelvis measuring approximately 6 x 4.6 x 4 cm with extensive diverticulosis. Patient states that she does not currently have any abdominal pain however approximately 3 weeks ago she did have an episode of vomiting. She does report increased flatulence. Increased gas. Denies any fever or chills or diarrhea she does report some constipation she can go a week without having a bowel movement. PMHX includes DM type 2, Hyperlipidemia, Hiatal hernia, Depression. CBC CMP lactate, PT. PTT urinalysis ordered, patient last ate around 5:30 PM. Will get labs and consult with surgery. 194: Consulted with Dr. Navarro via tracx for consult. She was able to view the CT images and report. She recommends admission by hospitalist and she will see her first thing in am. IV antibiotics, [facility] consult for draining of abscess via IR, and PO as tolerated, NPO after midnight if IR able to see her tomorrow. Discussed recommendations with patient she verbalized understanding. Hospitalist paged. 2016: Spoke with Dr. Bourne who agrees to accept patient for admission. This text was generated using IMNEXTation system, please disregard any oddities of phrase or misspellings. Patient transported up to floor in wheelchair in hemodynamically stable condition. This text was generated using [employer] dictation system, please disregard any oddities of phrase or misspellings. Medical Records Medical records reviewed: Yes I reviewed the patient's medical records. Lab Data Lab results reviewed: Yes I reviewed the patient's lab results. Labs: 04/07/25 20:01 Blood Blood Culture - Pending 04/07/25 20:01 Blood Blood Culture - Pending Laboratory Tests Range/Units 04/07/25 04/07/25 19:38 19:43 WBC (4.4-10.8) 10^3/uL 6.31 RBC (3.93-5.22) 10^6/uL 4.48 Hgb (11.2-15.7) g/dL 12.3 Hct (36.0-46.0) % 39.3 MCV (80-95) fL 88 MCH (27.0-33.0) pg 27.5 MCHC (32.0-36.0) % 31.3 L RDW (11.7-14.6) % 12.7 Plt Count (130-400) 10^3/uL 376 MPV (8.0-11.0) fL 8.5 Immature Gran % % 0.3 Neutrophils % % 60.1 Lymphocytes % % 30.9 Monocytes % % 6.5 Eosinophils % % 1.9 Basophils % % 0.3 Nucleated RBC % (0.0-0.3) % 0.0 Absolute Neutrophils (1.2-6.7) 10^3/uL 3.79 Absolute Lymphocytes (1.2-3.4) 10^3/uL 1.95 Absolute Monocytes (0.1-0.8) 10^3/uL 0.41 Absolute Eosinophils (0.0-0.7) 10^3/uL 0.12 Absolute Basophils (0.0-0.2) 10^3/uL 0.02 PT (9.1-11.1) sec 9.3 INR (0.9-1.1) 0.9 APTT (20.6-30.2) sec 24.7 VBG Lactate (<or=2.0) mmol/L 1.0 Sodium (136-145) mmol/L 137 Potassium (3.5-5.1) mmol/L 4.4 Chloride (98-107) mmol/L 99 Carbon Dioxide (20.0-31.0) mmol/L 32.3 H Anion Gap (3-11) mmol/L 5.4 BUN (9-23) mg/dL 9 Creatinine (0.55-1.02) mg/dL 0.81 Est GFR (CKD-EPI 2020) (mL/min/1.73m2) 67.85 Glucose (74-106) mg/dL 147 H Calcium (8.3-10.6) mg/dL 9.6 Magnesium (1.6-2.6) mg/dL 1.8 Total Bilirubin (0.2-1.2) mg/dL 0.9 AST (<34) U/L 14 ALT (10-49) U/L 10 Alkaline Phosphatase (46-116) U/L 119 H Total Protein (5.7-8.2) g/dL 7.8 Albumin (3.2-5.0) g/dL 4.4 Lipase (<53) U/L 31 Urine Color (Yellow) Yellow Urine Clarity (Clear) Clear Urine pH (5-8) 5.0 Ur Specific [place] (1.005-1.025) 1.010 Urine Protein (Neg-Trace) mg/dL Negative Urine Ketones (Negative) mg/dL 15 H Urine Blood (Negative) Negative Urine Nitrite (Negative) Negative Urine Bilirubin (Negative) Negative Urine Urobilinogen (Up to 0.2) mg/dL 0.2 Ur Leukocyte Esterase (Negative) Negative Urine Glucose (Negative) mg/dL Negative PFSH All Active Problems GERD (gastroesophageal reflux disease) (Chronic) Abscess of sigmoid colon due to diverticulitis (Acute) Colonic diverticular abscess (Acute) Colon cancer screening (Acute) Medical History Hiatal hernia Rosacea Hyperlipidemia Depression Infectious mononucleosis age 18 -required hospitalization Diabetes mellitus, type 2 Family History Father Heart disease Sister Personal history of malignant neoplasm Breast CA - diagnosed age 63 Brother Diabetes Brother Diabetes Social History Smoking/Tobacco Use Status: Never Smoking risk assessment performed?: Yes Alcohol Intake: never Drug use: Never Housing: apartment
[2025-04-07 19:49] LABS: Glucose Negative (Negative)
--- NOTE | 2025-04-07 19:50 | SCONE_ITS ---
Date of service: 04/08/25 Time of Service: 14:24 Assessment and Plan Assessment and plan (1) Colonic diverticular abscess: Status: Acute Assessment and plan: Patient is an 80-year-old female who presented to the ED following an outpatient CT scan with concern for a large diverticular abscess. Her main symptoms include decreased appetite, weight loss, episodes of vomiting, and change in bowel habits. She otherwise denies any abdominal pain or fevers or chills. On exam she is afebrile and hemodynamically stable. Her abdomen is soft and nontender to palpation. She has no evidence of a leukocytosis. Her previously obtained imaging was reviewed with evidence of a large likely diverticular abscess. Given these findings admission was recommended for antibiotic management and drain placement with interventional radiology. Would recommend down and back procedure for drain placement with interventional radiology when possible. Continue antibiotics in the interim. Okay for regular diet pending plan for drain placement. History of Present Illness Narrative: Patient is an 80-year-old female who presented to the emergency department due to concerning findings of a diverticular abscess on outpatient imaging. She notes that this imaging was obtained as she has had decreased appetite, vomiting episodes, and weight loss over the course of the past month. She denies any specific abdominal pain, fevers, chills, chest pain, shortness of breath. She does note that she has mainly had a decreased appetite and increased flatus. She notes that she also endorses some constipation. She denies any blood in her stool. She denies any dysuria or pneumaturia. She has no prior history of diverticulitis. She notes that she has had a previous colonoscopy many years ago and was recommended that she stop screening colonoscopies. She otherwise denies any prior abdominal surgery. She has no family history of colon cancer. She otherwise is fairly healthy other than type 2 diabetes. Review of Systems Constitutional Constitutional: Denies chills, Denies fatigue, Denies fever(s) and Denies weight gain Cardiovascular Cardiovascular: Denies chest pain and Denies dyspnea Respiratory Respiratory: Denies dyspnea Gastrointestinal Gastrointestinal: Denies abdominal pain and Denies nausea Genitourinary Genitourinary: Denies dysuria Endocrine Endocrine: Denies fatigue PFSH All Active Problems GERD (gastroesophageal reflux disease) (Chronic) Abscess of sigmoid colon due to diverticulitis (Acute) Colonic diverticular abscess (Acute) Colon cancer screening (Acute) Medical History Hiatal hernia Rosacea Hyperlipidemia Depression Infectious mononucleosis age 18 -required hospitalization Diabetes mellitus, type 2 Family History Father Heart disease Sister Personal history of malignant neoplasm Breast CA - diagnosed age 63 Brother Diabetes Brother Diabetes Social History Smoking/Tobacco Use Status: Never Smoking risk assessment performed?: Yes Alcohol Intake: never Drug use: Never Housing: apartment Exam Narrative Exam Narrative: General: Well appearing, no acute distress. Skin: Good turgor, no visible rashes or lesion HEENT: Normocephalic, atraumatic CV: Regular rate Lungs: Bilateral equal chest rise, non-labored breathing Abdomen: Soft, non-tender, non-distended Extremities: Warm, well perfused Neurologic: No focal deficits Psychiatric: Alert and oriented, normal mood and affect Results Last Vital Signs Temp 36.4 C L 04/07/25 19:02 Pulse 85 04/07/25 19:02 Resp 18 04/07/25 19:02 BP 126/75 04/07/25 19:02 Pulse Ox 96 04/07/25 19:02 Labs 04/08/25 06:15 04/08/25 06:15 Labs: Laboratory Results - last 24 hr 04/07/25 19:38 Urine Color Yellow Urine Clarity Clear Urine pH 5.0 Ur Specific [place] 1.010 Urine Protein Negative Urine Ketones 15 H Urine Blood Negative Urine Nitrite Negative Urine Bilirubin Negative Urine Urobilinogen 0.2 Ur Leukocyte Esterase Negative Urine Glucose Negative
[2025-04-07 19:53] LABS: Abs Immature Grans 0.02 10^3/uL (0.0-0.06); HCT 39.3 % (36.0-46.0); HGB 12.3 g/dL (11.2-15.7); Immature Grans % 0.3 %; MCH 27.5 pg (27.0-33.0); MCHC 31.3 % (32.0-36.0); MCV 88 fL (80-95); MPV 8.5 fL (8.0-11.0); Platelet Count 376 10^3/uL (130-400); RBC 4.48 10^6/uL (3.93-5.22); RDW 12.7 % (11.7-14.6); RDW-SD 41.0 fL; WBC 6.31 10^3/uL (4.4-10.8)
[2025-04-07 20:07] LABS: INR 0.9 (0.9-1.1); PTT Activated 24.7 sec (20.6-30.2); Prothrombin Time 9.3 sec (9.1-11.1)
[2025-04-07 20:13] LABS: ALT 10 U/L (10-49); AST 14 U/L (<34); Albumin 4.4 g/dL (3.2-5.0); Alkaline Phosphatase 119 U/L (46-116); Anion Gap 5.4 mmol/L (3-11); BUN 9 mg/dL (9-23); Bilirubin, Total 0.9 mg/dL (0.2-1.2); CO2 32.3 mmol/L (20.0-31.0); Calcium 9.6 mg/dL (8.3-10.6); Chloride 99 mmol/L (98-107); Glucose 147 mg/dL (74-106); Lipase 31 U/L (<53); Magnesium 1.8 mg/dL (1.6-2.6); Potassium 4.4 mmol/L (3.5-5.1); Sodium 137 mmol/L (136-145); Total Protein 7.8 g/dL (5.7-8.2)
--- NOTE | 2025-04-07 20:18 | W.PM.HP.N ---
Date of service: 04/07/25 Time of Service: 20:19 Assessment and Plan Assessment and plan (1) Abscess of sigmoid colon due to diverticulitis: Start date: 04/07/25 Status: Acute Assessment and plan: This is an 80-year-old lady with some weight loss but mostly abdominal discomfort and change in bowel habits was sent for CT of the chest/abdomen/pelvis by her PCP. CT had positive findings of a 6 x 4 cm mass which appears to be a diverticular abscess in the region of the colon with extensive diverticulosis. Her last colonoscopy in 2013 did not show diverticulosis. She has no history of hematochezia but has had a change in bowel habits with less frequent stool and bloating/flatulence with changes in caliber and consistency of stools. She had no measured fever and no elevated WBC in the ED. She appeared comfortable and was initiated on IV Zosyn which will be continued with the patient n.p.o. pending surgical evaluation and possible down and back transfer to tertiary care institution for interventional radiology to drain this abscess. Her other medical problems appear stable and patient is very comfortable. Her PPI will be switched to Protonix IV and her metformin will be held especially with recent IV dye. Surgery has been consulted and will advise. Patient is a DNR/DNI. (2) GERD (gastroesophageal reflux disease): Status: Chronic Assessment and plan: Continue PPI with Protonix IV. (3) Diabetes mellitus, type 2: Assessment and plan: Hold metformin and since n.p.o., glucometer measurements every 6 hours with sensitive sliding scale coverage. Watch for hypoglycemia. (4) Hyperlipidemia: Assessment and plan: Continue outpatient medical therapy with atorvastatin when taking p.o. (5) Depression: Assessment and plan: Continue outpatient medical therapy when taking p.o. History of Present Illness History of Present Illness Chief Complaint: Abdominal bloating with change in stool. Narrative: This is an 80-year-old female patient with had a 2 to 3-week history of bloating with increased flatulence and change in bowel habits with slightly decreased volume of stooling with change in stool caliber and consistency. She has seen no hematochezia. She has had no nausea or vomiting but did have some abdominal discomfort which has resolved. She denies any fever or chills. Overall she has lost about 5 to 7 pounds in 3 months presents significant to her PCP with the patient waiting 2 and 25 pounds in the distant past with slow weight loss down to about 150 pounds presently. The weight has been going down over the years.. Stress at home has increased recently with her having advancing parkinsonism and having to move twice in the last several months. She has had several colonoscopies in the past the last seen on record being October 20, 2013 which revealed a cecal polyp which was small at 5 mm and removed with no diverticulosis mentioned. Recently with her abdominal pain which resolved but change in bowel habits and some weight loss, her PCP ordered a CT of the abdomen and pelvis which revealed a significant diverticular abscess with severe diverticulosis in the same region. She had no white count or fever in the ED but was begun on Zosyn with surgical consultation in place and patient n.p.o. for possible procedure in the morning. She does have diabetes and this will be managed without metformin while in the hospital. She also will have IV hydration since she is NPO. Overall the patient feels generally well with no other complaints and surprised by the findings. She has a DNR/DNI. Review of Systems Narrative: 13 point review of systems otherwise unrevealing or stable. PFSH All Active Problems GERD (gastroesophageal reflux disease) (Chronic) Abscess of sigmoid colon due to diverticulitis (Acute) Colonic diverticular abscess (Acute) Colon cancer screening (Acute) Medical History Hiatal hernia Rosacea Hyperlipidemia Depression Infectious mononucleosis age 18 -required hospitalization Diabetes mellitus, type 2 Family History Father Heart disease Sister Personal history of malignant neoplasm Breast CA - diagnosed age 63 Brother Diabetes Brother Diabetes Social History Smoking/Tobacco Use Status: Never Smoking risk assessment performed?: Yes Alcohol Intake: never Drug use: Never Housing: apartment Meds Allergies and Home Medications Allergies Allergy/AdvReac Type Severity Reaction Status Date / Time No Known Allergies Allergy Unverified 04/07/25 19:06 Home Medications ?Medication ?Instructions ?Recorded ?Confirmed ?Type Vitamin B 12 100 mg PO DAILY 04/08/13 12/27/25 History Vitamin D 3 DAILY 07/19/12 10/20/14 History atorvastatin 20 mg tablet (Lipitor) 20 mg PO DAILY 07/19/12 04/07/25 History metformin 500 mg tablet,extended 500 mg PO BID 07/19/12 04/07/25 History release 24hr (osmotic) fluoxetine 10 mg capsule 10 mg PO DAILY 10/20/14 04/07/25 History omeprazole magnesium 20 mg 20 mg PO PRN PRN 10/20/14 04/07/25 History tablet,delayed release (Prilosec OTC) Exam Narrative Exam Narrative: General: Patient is moderately obese, alert and oriented x 3 and in no acute distress. Her conversation is most about her 's health and concerns about him. HEENT: Normocephalic, eyes with pupils equal and react to light symmetrically, extraocular movement intact and sclera anicteric. Oropharynx with moist mucosa and fair dentition with missing teeth. Neck: Supple without JVD. Back: Kyphotic without CVA tenderness. Lungs: Clear to auscultation and percussion with no focalizing rales or rhonchi. No expiratory wheeze. Breast: Exam deferred. Heart: Regular rate and rhythm with 3/6 systolic murmur over right sternal border at the loudest intensity but also auscultated at the left sternal border and not over the apex. It is not related to her inspiration. Abdomen: Slightly protuberant, obese, soft palpation with some discomfort of pressure with palpation to the lower abdomen but no guarding or rebound. Bowel sounds are positive in all quadrants. No palpable hepatosplenomegaly. Genitalia/rectal: Exam deferred. Extremities: Nonpitting edema lower extremities with osteoarthritic changes of the joints. Good capillary refill. No clubbing or cyanosis. Skin: Normal color, warm and dry. Neuro: Cranial nerves II through XII grossly intact, no focalized motor deficits or tremor. Psych: Normal affect and mood. No abnormal thought processes. Remote and recent memory intact. Results Imaging Imaging Studies: EXAM: CT CHEST/ABD/PEL W Date exam: 04/07/2025 CLINICAL HISTORY: R63.4 ABN weight loss,nausea,ovaries, uterus and gallbladder all in place. TECHNIQUE: Imaging Protocol: Axial computed tomography images with coronal and sagittal reformatted images were created and reviewed CONTRAST MATERIAL: Intravenous: Omnipaque 350 Contrast volume:100 ml Oral: Yes. Oral contrast was also administered for bowel opacification. COMPARISON: No exams were available for comparison FINDINGS: CHEST: LUNGS: No infiltrates nor pleural effusions. No ominous pulmonary nodules.. MEDIASTINUM: There is no hilar nor mediastinal adenopathy. CARDIAC: Heart size is normal. There is no pericardial effusion.Developmental average right subclavian arteries noted. Thoracic aorta otherwise unremarkable. OSSEOUS: Chronic compression fracture of T12 noted. Also nonacute compression fractures of L2 and L3. No significant canal compromise at these levels. . ABDOMEN: There is no ascites. LIVER: There are no focal hepatic lesions nor dilatation of intrahepatic ducts. No evidence of abscess in the liver. GALLBLADDER/BILIARY: No obvious gallbladder pathology. CBD is not dilated. PANCREAS: No evidence of pancreatic mass nor dilatation of the pancreatic duct. SPLEEN: Spleen is not enlarged. There are no intrasplenic lesions. Splenic and portal veins are patent. ADRENALS: Right adrenal gland unremarkable. There is a nodule in left adrenal gland measuring approximately 3.6 by 1.4 cm. KIDNEYS: Left kidney unremarkable. There is a benign small cyst in the posterior cortex of the right kidney measuring 8 mm. This does not require further workup.. ABDOMINAL AORTA: The abdominal aorta is atherosclerotic but not enlarged. There is also no aneurysmal dilatation of the iliac arteries. LYMPH NODES: There is no retroperitoneal nor paraaortic adenopathy. ABDOMINAL WALL: Small fat only containing midline umbilical hernia. GI: No evidence of small-bowel obstruction. There is abundant fecal material in the colon. There is sigmoid diverticulosis. There is also a large abscess the inferior wall of the sigmoid immediately above the bladder, this abscess measuring 6 cm wide by 4.6 cm craniocaudal by 4 cm AP. There is fat stranding around this region. No free air and no gas within the adjacent urinary bladder to suggest fistulous communication. PELVIS: LYMPH NODES: There is no intrapelvic nor inguinal adenopathy. GI: No evidence of appendicitis.As above. Large sigmoid associated abscess most probably related to subacute diverticulitis of the sigmoid. There appears to be extensive sigmoid diverticulosis. URINARY BLADDER: Some stranding around the bladder which is most probably related to the sigmoid abnormality. There is no gas in the urinary bladder lumen. REPRODUCTIVE: Retroverted uterus. No ovarian masses. No free fluid. OSSEOUS: No significant osseous lesions. IMPRESSION: 1. The main finding here is a large sigmoid associated abscess in the pelvis measuring approximately 6 x 4.6 x 4 cm, this in an area of extensive diverticulosis. This is most probably an abscess related to subacute diverticulitis. 2. There is no evidence of gas in the portal venous system nor intrahepatic abscess related to this pelvic finding and there is no gas within the adjacent urinary bladder lumen to suggest fistulous communication. 3. There is a 3.6 x 1.4 cm nodule in the left adrenal gland. 4. 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 No other significant findings in the chest. Labs 04/08/25 06:15 04/07/25 19:43 Labs: Laboratory Results - last 24 hr 04/07/25 04/07/25 19:38 19:43 WBC 6.31 RBC 4.48 Hgb 12.3 Hct 39.3 MCV 88 MCH 27.5 MCHC 31.3 L RDW 12.7 Plt Count 376 MPV 8.5 Immature Gran % 0.3 Neutrophils % 60.1 Lymphocytes % 30.9 Monocytes % 6.5 Eosinophils % 1.9 Basophils % 0.3 Nucleated RBC % 0.0 Absolute Neutrophils 3.79 Absolute Lymphocytes 1.95 Absolute Monocytes 0.41 Absolute Eosinophils 0.12 Absolute Basophils 0.02 PT 9.3 INR 0.9 APTT 24.7 VBG Lactate 1.0 Sodium 137 Potassium 4.4 Chloride 99 Carbon Dioxide 32.3 H Anion Gap 5.4 BUN 9 Creatinine 0.81 Est GFR (CKD-EPI 2020) 67.85 Glucose 147 H Calcium 9.6 Magnesium 1.8 Total Bilirubin 0.9 AST 14 ALT 10 Alkaline Phosphatase 119 H Total Protein 7.8 Albumin 4.4 Lipase 31 Urine Color Yellow Urine Clarity Clear Urine pH 5.0 Ur Specific [place] 1.010 Urine Protein Negative Urine Ketones 15 H Urine Blood Negative Urine Nitrite Negative Urine Bilirubin Negative Urine Urobilinogen 0.2 Ur Leukocyte Esterase Negative Urine Glucose Negative Last Vital Signs Temp 36.4 C L 04/07/25 19:02 Pulse 85 04/07/25 19:02 Resp 18 04/07/25 19:02 BP 126/75 04/07/25 19:02 Pulse Ox 96 04/07/25 19:02 VTE Prohylaxis Risk Level: Moderate/High Risk Contraindications: Medical contrainidcation (Abdominal abscess pending possible surgical procedure in the morning.) Prophylaxis: Mechanical and Patient ambulatory Time Spent Time spent with Patient: >75 minutes Time was spent: preparing to see the patient(eg.review tests), obtaining and/or reviewing separately otained hiistory, ordering medications,tests, procedures, referring, communicating with other health care specialist, indepentently interpreting results, counseling the patient and care coordination
[2025-04-07] MEDS: PIPERACILLIN/TAZO 3.375 GM in Normal Saline 50 ML IVPB (21:07)
[2025-04-07 21:08] VITALS: BP 104/32; PULSE 77; RESP 16; O2SAT 94
--- NOTE | 2025-04-07 21:25 | NUR.NOTE ---
Report given to KIANA Carpenter on Med/Surg prior to transfer to inpatient unit. All pt belongings collected and transported with pt. Pt wheeled in WC up to inpatient room without incident.
[2025-04-07 21:30] VITALS: BP 148/66; PULSE 77; RESP 16; TEMP 36.2; O2SAT 96
[2025-04-07 21:47] VITALS: BP 148/66; PULSE 77; RESP 16; TEMP 36.2; O2SAT 96
[2025-04-07 21:53] LABS: COVID-19 PCR Negative (Negative); RSV PCR Negative (Negative)
--- NOTE | 2025-04-07 22:13 | W.PC.ACHO ---
Registration Status: ADM IN Primary Language: Preferred Language: Indonesian ED Information & Data Chief Complaint Abd Prob 04/07/25 19:39 Triage Note PT states that she had an 04/07/25 19:[address] this morning and was called by her Dr and told to come in to the ED because she has an abdominal abscess. Medical / Surgical History (Last Reviewed 04/07/25 @ 20:22 by Jarrell Canales) Hiatal hernia Rosacea Hyperlipidemia Depression Infectious mononucleosis Diabetes mellitus, type 2 Most Recent Vital Signs Temperature 36.2 C L 04/07/25 21:47 Temperature Source Tympanic 04/07/25 21:30 Pulse 77 04/07/25 21:47 Respiratory Rate 16 04/07/25 21:47 Respiratory Effort Normal, Non-Labored 04/07/25 21:47 Respiratory Depth Normal 04/07/25 21:47 Respiratory Pattern Normal 04/07/25 21:47 Blood Pressure 148/66 H 04/07/25 21:47 Blood Pressure Mean 93 04/07/25 21:30 Pulse Oximetry 96 04/07/25 21:47 Oxygen Delivery Method Room Air 04/07/25 21:47 Oxygen Flow Rate 0 04/07/25 21:47 Pain Level 0 04/07/25 21:47 Allergies No Known Allergies Allergy (Unverified 04/07/25 19:06) IV IV Catheter Type [] Peripheral IV IV Catheter Type [Left Saline Lock Antecubital] IV Catheter Gauge [] 20 IV Catheter Gauge [Left 20 Antecubital] Diet Orders Category Date Time Status npo [Nothing Per Oral] [DIET] Nutrition 04/08/25 00:01 Ordered Diagnostics 04/07/25 04/07/25 04/07/25 Range/Units 20:45 19:43 19:38 WBC 6.31 (4.4-10.8) 10^3/uL RBC 4.48 (3.93-5.22) 10^6/uL Hgb 12.3 (11.2-15.7) g/dL Hct 39.3 (36.0-46.0) % MCV 88 (80-95) fL MCH 27.5 (27.0-33.0) pg MCHC 31.3 L (32.0-36.0) % RDW 12.7 (11.7-14.6) % Plt Count 376 (130-400) 10^3/uL MPV 8.5 (8.0-11.0) fL Immature Gran % 0.3 % Neutrophils % 60.1 % Lymphocytes % 30.9 % Monocytes % 6.5 % Eosinophils % 1.9 % Basophils % 0.3 % Nucleated RBC % 0.0 (0.0-0.3) % Absolute Neutrophils 3.79 (1.2-6.7) 10^3/uL Absolute Lymphocytes 1.95 (1.2-3.4) 10^3/uL Absolute Monocytes 0.41 (0.1-0.8) 10^3/uL Absolute Eosinophils 0.12 (0.0-0.7) 10^3/uL Absolute Basophils 0.02 (0.0-0.2) 10^3/uL PT 9.3 (9.1-11.1) sec INR 0.9 (0.9-1.1) APTT 24.7 (20.6-30.2) sec VBG Lactate 1.0 (<or=2.0) mmol/L Sodium 137 (136-145) mmol/L Potassium 4.4 (3.5-5.1) mmol/L Chloride 99 (98-107) mmol/L Carbon Dioxide 32.3 H (20.0-31.0) mmol/L Anion Gap 5.4 (3-11) mmol/L BUN 9 (9-23) mg/dL Creatinine 0.81 (0.55-1.02) mg/dL Est GFR (CKD-EPI 2020) 67.85 (mL/min/1.73m2) Glucose 147 H (74-106) mg/dL Calcium 9.6 (8.3-10.6) mg/dL Magnesium 1.8 (1.6-2.6) mg/dL Total Bilirubin 0.9 (0.2-1.2) mg/dL AST 14 (<34) U/L ALT 10 (10-49) U/L Alkaline Phosphatase 119 H (46-116) U/L Total Protein 7.8 (5.7-8.2) g/dL Albumin 4.4 (3.2-5.0) g/dL Lipase 31 (<53) U/L Urine Color Yellow (Yellow) Urine Clarity Clear (Clear) Urine pH 5.0 (5-8) Ur Specific [place] 1.010 (1.005-1.025) Urine Protein Negative (Neg-Trace) mg/dL Urine Ketones 15 H (Negative) mg/dL Urine Blood Negative (Negative) Urine Nitrite Negative (Negative) Urine Bilirubin Negative (Negative) Urine Urobilinogen 0.2 (Up to 0.2) mg/dL Ur Leukocyte Esterase Negative (Negative) Urine Glucose Negative (Negative) mg/dL COVID-19 Source Nasopharynx SARS-CoV-2 (PCR) Negative (Negative) Influenza Type A (PCR) Negative (Negative) Influenza Type B (PCR) Negative (Negative) RSV (PCR) Negative (Negative) 04/07/25 20:39 Blood Culture - Pending Blood 04/07/25 20:31 Blood Culture - Pending Blood Intake and Output - 24 Hour Total 04/07/25 18:53 thru 04/07/25 21:57 Weight 72.1 kg Falls Risk Assessment History of Falls Previous History 04/07/25 21:47 Contributing Factors No Factors 04/07/25 21:47 Ambulatory Aids Independent 04/07/25 21:47 Tubes/Lines None 04/07/25 21:47 Gait Evaluation No gait disturbance 04/07/25 19:07 Cognition No cognitive impairment 04/07/25 19:07 Fall Total Score 15 04/07/25 21:47 Level of Risk Standard/Low Risk 04/07/25 21:47 Problems (Last Reviewed 04/07/25 @ 20:22 by Jarrell Canales) GERD (gastroesophageal reflux disease) (Chronic) Abscess of sigmoid colon due to diverticulitis (Acute) Colonic diverticular abscess (Acute) Notes 04/07/25 21:25 Nursing Notes by Sobia Martini Report given to KIANA Carpenter on Med/Surg prior to transfer to inpatient unit. All pt belongings collected and transported with pt. Pt wheeled in up to inpatient room without incident. Initialized on 04/07/25 21:25 - END OF NOTE Attestation Statement: By documenting the first initial, last name, and credentials of the reporting nurse below, both parties acknowledge that all relevant information regarding the patient handoff has been communicated, and that all questions have been addressed to ensure continuity and safety of care. Additional Patient Information/Comments: pt has CT abdomen as out pt today, reviled a new diagnosis of abdominal abscess. was called by her MD to comeback to the hospital. pt is NPO after midnight, now she is on clear liquid diet, A&O, on RA. surgical consult for tomorrow. Hx of weight loss since last year. Report Received From: Summer BRUNO
[2025-04-07] MEDS: Normal Saline Flush 10 ML SYR IVP (22:15)
[2025-04-07] MEDS: Normal Saline 1,000 ML 125 ML IV (22:24)
[2025-04-08 03:13] VITALS: BP 119/52; PULSE 68; RESP 15; TEMP 36.5; O2SAT 97
[2025-04-08] MEDS: PIPERACILLIN/TAZO 3.375 GM in Normal Saline 50 ML IVPB ×2 (04:28→10:16)
[2025-04-08] MEDS: Normal Saline 1,000 ML 125 ML IV (05:30)
[2025-04-08 06:49] LABS: HCT 33.1 % (36.0-46.0); HGB 10.3 g/dL (11.2-15.7); MCH 27.2 pg (27.0-33.0); MCHC 31.1 % (32.0-36.0); MCV 88 fL (80-95); MPV 8.7 fL (8.0-11.0); Platelet Count 288 10^3/uL (130-400); RBC 3.78 10^6/uL (3.93-5.22); RDW 12.8 % (11.7-14.6); RDW-SD 40.8 fL; WBC 5.03 10^3/uL (4.4-10.8)
[2025-04-08 07:12] LABS: ALT 7 U/L (10-49); AST 11 U/L (<34); Albumin 3.4 g/dL (3.2-5.0); Alkaline Phosphatase 90 U/L (46-116); Anion Gap 7.7 mmol/L (3-11); BUN 9 mg/dL (9-23); Bilirubin, Total 0.9 mg/dL (0.2-1.2); CO2 29.3 mmol/L (20.0-31.0); Calcium 8.6 mg/dL (8.3-10.6); Chloride 105 mmol/L (98-107); Glucose 119 mg/dL (74-106); Magnesium 1.8 mg/dL (1.6-2.6); Potassium 3.9 mmol/L (3.5-5.1); Sodium 142 mmol/L (136-145); Total Protein 6.0 g/dL (5.7-8.2)
[2025-04-08 07:34] VITALS: BP 118/57; PULSE 63; RESP 16; TEMP 36.9; O2SAT 97
[2025-04-08] MEDS: Normal Saline Flush 10 ML SYR IVP (08:06)
[2025-04-08] MEDS: Pantoprazole 40 MG VIAL IVP (08:06)
[2025-04-08] MEDS: Atorvastatin 20 MG TAB PO (08:06)
[2025-04-08] MEDS: FLUoxetine 10 MG TAB PO (08:06)
--- NOTE | 2025-04-08 08:46 | INITIAL_ITS ---
Date of service: 04/08/25 Time of Service: 08:46 Care Management Initial Assmt Initial Assessment Reason for Hospitalization: Colonic diverticular abscess Functional Status/Living Situation Patient Presentation: Tori is currently awake and lying in bed, with her is Kurt present at the bedside. Both are polite and easy to engage in conversation. She resides in an apartment in [facility] with her Kurt. She drives and is independent at baseline and does not receive any community-based services. Her brother Bhavik lives locally and is supportive. Patient denies concerns at this time and is waiting to find out if she needs to have a down and back to [facility] [place]. [facility] is being consulted, per hospitalist. CM will follow. Town of Residence: [place] [facility] Resides with: Spouse Significant Other/Family: Out of area (Son Clyde resides in [place], Daughter Em in [facility] and Granddaughter in [place].) Natural Supports: Brother Bhavik Stanley, lives locally and is supportive Employment Status: Retired Medications Medication Management: No Issues/Barriers identified Physical Functioning/Mobility Assistive Device: none Advance Directives Advance Directives: Do you have an Advance Directive: Y , 09:19 AD On File at [facility]: Y 02/10/22, 09:19 Date Asked 09/02/23 09/02/23, 11:16 AD Date Reviewed 04/07/25 04/07/25, 07:50 COLST On File at [facility] COLST Date Scanned Code Status Resuscitation Status DNR/DNI Portal Pt does not currently have a portal and education provided: Yes Insurance Coverage/Financial Issues Insurance: BC/BS [facility] - [id number] Financial Issues: None identified Care Team Visit Care Team Role Provider Type Johnnie Ortega MD MD [facility] STAFF PHYSICIAN Deepika Miller MD Primary Care Provider [facility] STAFF PHYSICIAN Latonia Enamorado RDN, CDCES Other Providers BALCONY WORKER Carl Brock RDN Other Providers BALCONY WORKER Tamara Navarro MD Other Providers [facility] STAFF PHYSICIAN Cici Mcgregor, MEENAKSHI Emergency Provider NURSE PRACTITIONER Jarrell Canales Admit Provider NON-[facility] STAFF PHYSICIAN Attending Provider Discharge Potential Discharge Needs: Consult Consult Services Needed: Other ([facility], may need a down and back drain placement), PCP F/U Appt and Surgical F/U Appt Anticipated Barriers to Discharge: Medical Status Patient/Family Education Needs: Review discharge instructions, discuss Ask Me Three Transportation: Private vehicle Plan: Per hospitalist, [facility] is being consulted, possible down and back for drain placement. Patients stated goal is to discharge home, once medically ready. She is agreeable to New [facility] services, if indicated and she is planning to have her brother Bhavik provide her transportation. CM will continue to follow and support discharge planning needs as patient clinical status evolves. Social Determinants of Health Screening Social Determinants of health last assessed in clinic: 04/08/25 Will the Patient Participate in the Screening?: Yes Do you worry about having a steady place to live?: no Problems where you live: no known problems In the past 12 months, have you had to go without electric, gas, oil or water in your home?: no 1. Within the past 12 months, we worried whether our food would run out before we got money to buy more.: Never true 2. Within the past 12 months, the food we bought just didn't last and we didn't have money to get more.: Never true Has lack of transportation kept you from medical appointments or from doing things needed for daily living?: no Has anyone in your life made you feel unsafe or unsupported?: no How hard is it for you to pay for the very basics like food, housing, medical care, and heating? Would you say it is:: Not hard at all Do you want help finding or keeping work or a job?: I do not need or want help If for any reason you need help with day-to-day activities such as bathing, preparing meals, shopping, managing finances, etc., do you get the help you need?: I don?t need any help How often do you feel lonely or isolated from those around you?: Never Do you speak a language other than Malay at home?: No Does the patient want assistance with any of the above?: No PFSH All Active Problems GERD (gastroesophageal reflux disease) (Chronic) Abscess of sigmoid colon due to diverticulitis (Acute) Colonic diverticular abscess (Acute) Colon cancer screening (Acute) Medical History Hiatal hernia Rosacea Hyperlipidemia Depression Infectious mononucleosis age 18 -required hospitalization Diabetes mellitus, type 2 Family History Father Heart disease Sister Personal history of malignant neoplasm Breast CA - diagnosed age 63 Brother Diabetes Brother Diabetes Social History Smoking/Tobacco Use Status: Never Smoking risk assessment performed?: Yes Alcohol Intake: never Drug use: Never Housing: apartment
[2025-04-08 11:47] VITALS: BP 134/73; PULSE 63; RESP 16; TEMP 36.2; O2SAT 99
--- NOTE | 2025-04-08 15:40 | PDOC.CMDIS ---
Date of service: 04/08/25 Time of Service: 15:40 LACE Index Scoring Tool Questions: Length of Stay (in days): 1 Was the patient admitted via the E.D.?: Yes E.D. Visits: 1 Answers: Total Score: 5 Risk of Readmission: Low Risk Care Management Discharge Plan Reason for Hospitalization: Diverticulitis Discharge Plan: Tori is being discharged home with PO ABX via private vehicle with family. Patient will follow up with community providers and continue per her discharge plan of care. No new services are ordered on discharge. Patient/Family Education Needs: Review discharge instructions and plan to follow up after discharge. Discuss ask me three.
--- NOTE | 2025-04-08 15:46 | DSE_ITS ---
Date of service: 04/08/25 Time of Service: 08:00 DS: Diagnosis Discharge Diagnosis (1) Sigmoid diverticulitis: Status: Acute Discharge Plan Disposition Patient Disposition: Home Condition: Good Discharge Details Reason For Visit: Diverticular Abscess, NIDDM Admit Date/Time: 04/07/25 20:35 Admit Provider: Jarrell Canales Attending Provider: Jarrell Canales Primary Care Provider: Deepika Miller [facility] Course Hospital Course: This is an 80-year-old female patient with had a 2 to 3-week history of bloating with increased flatulence and change in bowel habits with slightly decreased volume of stooling with change in stool caliber and consistency. She has seen no hematochezia. She has had no nausea or vomiting but did have some abdominal discomfort which has resolved. She denies any fever or chills. Overall she has lost about 5 to 7 pounds in 3 months presents significant to her PCP with the patient waiting 2 and 25 pounds in the distant past with slow weight loss down to about 150 pounds presently. The weight has been going down over the years.. Stress at home has increased recently with her having advancing parkinsonism and having to move twice in the last several months. She has had several colonoscopies in the past the last seen on record being October 20, 2013 which revealed a cecal polyp which was small at 5 mm and removed with no diverticulosis mentioned. Recently with her abdominal pain which resolved but change in bowel habits and some weight loss, her PCP ordered a CT of the abdomen and pelvis which revealed a significant diverticular abscess with severe diverticulosis in the same region. She had no white count or fever in the ED but was begun on Zosyn with surgical consultation in place and patient n.p.o. for possible procedure in the morning. She does have diabetes and this will be managed without metformin while in the hospital. She also will have IV hydrat ion since she is NPO. Overall the patient feels generally well with no other complaints and surprised by the findings. She has a DNR/DNI. After [place] [facility] [place] consulted and advised that the para-colonic mass is likely full of fecal matter; drain is contraindicated. Discussed with Dr Navarro, will DC on PO antibiotics. Patient to follow up in general surgery clinic in 3-4 weeks. Home Meds and New Rx's Prescriptions: New amoxicillin-pot clavulanate 875-125 mg tablet 1 tab PO Q12H Qty: 14 0RF Continued atorvastatin [Lipitor] 20 MG tablet 20 mg PO DAILY metformin 500 MG tablet extended release 24hr 500 mg PO BID VITAMIN B 12 100 mg PO DAILY VITAMIN D 3 DAILY omeprazole magnesium [Prilosec OTC] 20 MG tablet,delayed release (DR/EC) 20 mg PO PRN PRN fluoxetine 10 MG capsule 10 mg PO DAILY Discharge Instructions Instructions: Diverticulitis, High-fiber diet Stand Alone Forms: Portal Information Referrals: Tamara Navarro MD [ [facility] STAFF PHYSICIAN, Surgery] Activity:: Activity as Tolerated Equipment/Supplies:: No Equipment Needed Diet:: As Tolerated Discharge Orders Discharge Orders: Discharge Order (Routine); Ordered 04/08/25 Ordered By: Johnnie Ortega Discharge Data Discharge Date/Time-TO BE ENTERED AT DEPARTURE: 04/08/25 16:04 DS: Summary Time Spent with Patient providing and/or coordinating discharge services: Less than 30 minutes Status at Discharge Functional status at discharge: independent ambulation Overall status at discharge: patient is progressing back to baseline Mental Status: mental status grossly normal Speech and Movement: speech and movement normal Mood: congruent mood Affect: normal affect Exam Narrative Exam Narrative: General: Patient is moderately obese, alert and oriented x 3 and in no acute distress. Her conversation is most about her 's health and concerns about him. HEENT: Normocephalic, eyes with pupils equal and react to light symmetrically, extraocular movement intact and sclera anicteric. Oropharynx with moist mucosa and fair dentition with missing teeth. Neck: Supple without JVD. Back: Kyphotic without CVA tenderness. Lungs: Clear to auscultation and percussion with no focalizing rales or rhonchi. No expiratory wheeze. Breast: Exam deferred. Heart: Regular rate and rhythm with 3/6 systolic murmur over right sternal border at the loudest intensity but also auscultated at the left sternal border and not over the apex. It is not related to her inspiration. Abdomen: Slightly protuberant, obese, soft palpation with some discomfort of pressure with palpation to the lower abdomen but no guarding or rebound. Bowel sounds are positive in all quadrants. No palpable hepatosplenomegaly. Genitalia/rectal: Exam deferred. Extremities: Nonpitting edema lower extremities with osteoarthritic changes of the joints. Good capillary refill. No clubbing or cyanosis. Skin: Normal color, warm and dry. Neuro: Cranial nerves II through XII grossly intact, no focalized motor deficits or tremor. Psych: Normal affect and mood. No abnormal thought processes. Remote and recent memory intact. Psych Mental Status: mental status grossly normal Speech and Movement: speech and movement normal Mood: congruent mood Affect: normal affect DS: Data Vitals/I&O Vitals and I&O: Vital Signs Temperature 36.2 C L 04/08/25 11:47 Temperature Source Temporal Artery Scan 04/08/25 11:47 Pulse 63 04/08/25 11:47 Respiratory Rate 16 04/08/25 11:47 Respiratory Effort Normal, Non-Labored 04/07/25 21:47 Respiratory Depth Normal 04/07/25 21:47 Respiratory Pattern Normal 04/07/25 21:47 Blood Pressure 134/73 04/08/25 11:47 Blood Pressure Mean 93 04/08/25 11:47 Pulse Oximetry 99 04/08/25 11:47 Oxygen Delivery Method Room Air 04/08/25 11:47 Oxygen Flow Rate 0 04/08/25 11:47 Pain Level 0 04/08/25 07:34 Intake & Output 04/07/25 04/08/25 04/08/25 23:59 11:59 23:59 Intake Total 50 / 50 987.5 / 1986.5 999 / 1986.5 Balance 50 / 50 987.5 / 1986.5 999 / 1986. Weight 72.1 kg Intake: IV 50 / 50 987.5 / 1986.5 999 / 1986. Other: Urine Color Pale Pale Yellow Yellow Yellow Urine Appearance Clear Clear Clear Urine Odor Normal None Comment pt voided ind in the toliet..unmeasureable amount of urine pt had a cont void in the toliet...unmeasureable amount of urine Data Completed and Pending Pending Labs at Discharge: 04/07/25 04/07/25 04/07/25 19:38 19:43 20:45 WBC 6.31 RBC 4.48 Hgb 12.3 Hct 39.3 MCV 88 MCH 27.5 MCHC 31.3 L RDW 12.7 Plt Count 376 MPV 8.5 Immature Gran % 0.3 Neutrophils % 60.1 Lymphocytes % 30.9 Monocytes % 6.5 Eosinophils % 1.9 Basophils % 0.3 Nucleated RBC % 0.0 Absolute Neutrophils 3.79 Absolute Lymphocytes 1.95 Absolute Monocytes 0.41 Absolute Eosinophils 0.12 Absolute Basophils 0.02 PT 9.3 INR 0.9 APTT 24.7 VBG Lactate 1.0 Sodium 137 Potassium 4.4 Chloride 99 Carbon Dioxide 32.3 H Anion Gap 5.4 BUN 9 Creatinine 0.81 Est GFR (CKD-EPI 2020) 67.85 Glucose 147 H Calcium 9.6 Magnesium 1.8 Total Bilirubin 0.9 AST 14 ALT 10 Alkaline Phosphatase 119 H Total Protein 7.8 Albumin 4.4 Lipase 31 Urine Color Yellow Urine Clarity Clear Urine pH 5.0 Ur Specific [place] 1.010 Urine Protein Negative Urine Ketones 15 H Urine Blood Negative Urine Nitrite Negative Urine Bilirubin Negative Urine Urobilinogen 0.2 Ur Leukocyte Esterase Negative Urine Glucose Negative COVID-19 Source Nasopharynx SARS-CoV-2 (PCR) Negative Influenza Type A (PCR) Negative Influenza Type B (PCR) Negative RSV (PCR) Negative 04/08/25 06:15 WBC 5.03 RBC 3.78 L Hgb 10.3 L D Hct 33.1 L MCV 88 MCH 27.2 MCHC 31.1 L RDW 12.8 Plt Count 288 MPV 8.7 Immature Gran % Neutrophils % Lymphocytes % Monocytes % Eosinophils % Basophils % Nucleated RBC % Absolute Neutrophils Absolute Lymphocytes Absolute Monocytes Absolute Eosinophils Absolute Basophils PT INR APTT VBG Lactate Sodium 142 Potassium 3.9 Chloride 105 Carbon Dioxide 29.3 Anion Gap 7.7 BUN 9 Creatinine 0.79 Est GFR (CKD-EPI 2020) 69.83 Glucose 119 H Calcium 8.6 Magnesium 1.8 Total Bilirubin 0.9 AST 11 ALT 7 L Alkaline Phosphatase 90 Total Protein 6.0 Albumin 3.4 Lipase Urine Color Urine Clarity Urine pH Ur Specific [place] Urine Protein Urine Ketones Urine Blood Urine Nitrite Urine Bilirubin Urine Urobilinogen Ur Leukocyte Esterase Urine Glucose COVID-19 Source SARS-CoV-2 (PCR) Influenza Type A (PCR) Influenza Type B (PCR) RSV (PCR) Preliminary micro results at discharge 04/07/25 20:39 Blood Blood Culture - Pending 04/07/25 20:31 Blood Blood Culture - Pending [facility] All Active Problems (Updated 04/09/25 @ 00:01 by NEGRA SANTIAGO) Sigmoid diverticulitis (Acute) GERD (gastroesophageal reflux disease) (Chronic) Medical History Hiatal hernia Rosacea Hyperlipidemia Depression Infectious mononucleosis age 18 -required hospitalization Diabetes mellitus, type 2 Family History Father Heart disease Sister Personal history of malignant neoplasm Breast CA - diagnosed age 63 Brother Diabetes Brother Diabetes Social History Smoking/Tobacco Use Status: Never Smoking risk assessment performed?: Yes Alcohol Intake: never Drug use: Never Housing: apartment Time Spent with Patient Time Spent with Patient: <45 minutes Time was spent: preparing to see the patient(eg.review tests), obtaining and/or reviewing separately otained hiistory, ordering medications,tests, procedures, referring, communicating with other health resident care aid, indepentently interpreting results, counseling the patient and care coordination
== END 2025-04-08 16:04 | disposition home or self-care (01) | DRG 392 ==
LOC: ER 20:17 → MS 21:16
PROVIDERS: Admitting Provider Family Medicine; Emergency Provider Registered Nurse Emergency; PCP Family Medicine; Responsible Provider Family Medicine; Visit Provider Family Medicine
DX: K57.20 Diverticulitis of large intestine with perforation and abscess without bleeding (principal); E11.9 Type 2 diabetes mellitus without complications; K21.9 Gastro-esophageal reflux disease without esophagitis; E78.2 Mixed hyperlipidemia; K44.9 Diaphragmatic hernia without obstruction or gangrene; F32.A Depression, unspecified; Z66 Do not resuscitate; Z79.84 Long term (current) use of oral hypoglycemic drugs; R63.4 Abnormal weight loss; Z68.30 Body mass index [BMI] 30.0-30.9, adult
CPT/HCPCS: 00123; 36415; 80053; 83690; 85027; 87040; 87637; 96374; 99223; 99285; 81003; 83605; 83735; 85025; 85610; 85730; 99222; 99238; J1815; J2470; J2543